=== PATIENT | female | born 1955 | race Hispanic/Latino ===

== ENCOUNTER 2019-08-19 17:37 | Inpatient (IN) | payer MEDICARE ==
[2019-08-19] VITALS (7 sets, daily range): BP systolic 100–147; BP diastolic 45–62
[~2019-08-19] VITALS: Ht 154.9 cm; Wt 62.4 kg
[2019-08-19] MEDS ORDERED: BIVALIRUDIN 250 MG/VIAL IV ONE (19:22)
[2019-08-19] MEDS ORDERED: IOHEXOL-350 50ML VIAL IV ONE (19:23)
[2019-08-19] MEDS ORDERED: LIDOCAINE HCL 2% 20ML ONE ×2 (19:23→20:44)
[2019-08-19] MEDS ORDERED: IOHEXOL 350 MG/ML 100ML INFUS..BTL IV ONE (19:23)
[2019-08-19] MEDS ORDERED: FENTANYL CITRATE PF 50 MCG/1 ML 2ML VIAL ONE (19:23)
[2019-08-19] MEDS ORDERED: NITROGLYCERIN 2 MG/VIAL VIAL IV ONE (19:23)
[2019-08-19] MEDS ORDERED: MIDAZOLAM HCL 1 MG/ML 2ML VIAL ONE (19:23)
[2019-08-19] MEDS ORDERED: GLUCAGON 1MG KIT 1 MG ML IM PRN (21:15)
[2019-08-19] MEDS ORDERED: DEXTROSE 50%-WATER 50 ML DISP.SYRIN IV PRN (21:15)
[2019-08-19] MEDS ORDERED: HYDRALAZINE HCL 20 MG/ML VIAL IV PRN (21:15)
--- NOTE | 2019-08-19 23:12 | NUR ---
2158 Received patient from cath laboratory technician. Drowsy. Oriented x 4. Initial assessment completed. Oriented patient to unit, call light, etc. Transvenous pacer to left femoral. VVI, Vstim-5.0, Vsens -1.0, rate- 60. 6 fr sheath to right femoral to be discontinued. Bilateral pedal pulses strong. On n/c at2 liters. Glucometer done -68. D10W continued at 50 mls/hr. 2300 Glucometer repeated. Results -90. Hospitalist insulation board back tender BEN Worley FMP. Full report given.
[2019-08-19] MEDS ORDERED: ONDANSETRON HCL 4 MG/2 ML VIAL IVP PRN (23:15)
[2019-08-19] MEDS ORDERED: DEXTROSE 5%-WATER 1,000 ML IV SCH (23:15)
[2019-08-19] MEDS: DEXTROSE 10%-WATER 1,000 ML IV SCH (23:45)
[2019-08-20] VITALS (27 sets, daily range): BP systolic 107–180; BP diastolic 42–63
[2019-08-20] MEDS ORDERED: HYDR-3420 PO (04:12)
[2019-08-20] MEDS ORDERED: CYPR4TAB46 PO (04:12)
[2019-08-20] MEDS ORDERED: PANT40TA54 PO (04:12)
[2019-08-20] MEDS ORDERED: ESCI20TA36 PO (04:12)
[2019-08-20] MEDS ORDERED: CARV12.511 PO (04:12)
[2019-08-20] MEDS ORDERED: LEVO50TA11 PO (04:12)
[2019-08-20] MEDS ORDERED: ATOR20TA65 PO (04:12)
[2019-08-20] MEDS ORDERED: APIX2.5T PO (04:12)
[2019-08-20 04:18] LABS: ALANINE AMINOTRANSFERASE 16 U/L (12-78); ALBUMIN 3.3 g/dL (3.5-5.0); ASPARTATE AMINOTRANSFERASE 17 U/L (10-37); CARBON DIOXIDE 19 mmol/L (21-32); CHLORIDE 100 mmol/L (101-111); CREATINE KINASE, TOTAL 20 U/L (21-232); GLOMERULAR FILTR. RATE CALC 4 mL/min (>60); GLUCOSE,RANDOM 106 mg/dL (70-105); MYOGLOBIN 88 ng/mL (10-92); SODIUM SERUM 136 mmol/L (136-145); TOTAL PROTEIN, SERUM 6.8 g/dL (6.0-8.3); TROPONIN I < 0.04 ng/mL (0.00-0.06)
[2019-08-20 04:21] LABS: CREATININE 10.8 mg/dL (0.5-1.5); UREA NITROGEN, BLOOD 111 mg/dL (7-18)
[2019-08-20 04:31] LABS: BASOPHILS % (AUTO) 0.5 % (0.0-5.0); EOSINOPHILS % (AUTO) 1.6 % (0.0-8.0); HEMATOCRIT 27.7 % (36-48); MEAN CORPUSCULAR HEMOGLOBIN 23.3 pg (27.0-33.0); MEAN CORPUSCULAR HGB CONC 30.3 g/dL (32.0-36.0); MEAN CORPUSCULAR VOLUME 76.9 fL (79-99); MONOCYTES % (AUTO) 8.1 % (3.0-13.0); NEUTROPHILS % (AUTO) 75.3 % (40.0-77.0); PLATELET COUNT (AUTO) 77 K/uL (130-400); RED CELL DISTRIBUTION WIDTH 17.9 % (11.0-15.5); WHITE BLOOD COUNT (AUTO) 5.8 K/uL (4.8-10.8)
[2019-08-20 04:50] LABS: INR 1.06 (0.85-1.15); PROTHROMBIN TIME 11.4 SEC (9.6-11.6)
[2019-08-20 04:50] LABS: POTASSIUM 5.6 mmol/L (3.5-5.1)
[2019-08-20] MEDS: INSULIN HUMULIN R 100 UNIT/ML 3ML SQ SCH ×4 (06:33→20:29)
[2019-08-20] MEDS: DEXTROSE 10%-WATER 1,000 ML IV SCH (06:44)
[2019-08-20] MEDS: SEVELAMER HCL 800 MG TABLET PO SCH ×4 (07:33→16:22)
[2019-08-20] MEDS ORDERED: EPOETIN ALFA 10,000 UNIT/ML VIAL SQ SCH (09:00)
[2019-08-20] MEDS: PANTOPRAZOLE SODIUM 40 MG TABLET.DR PO SCH (09:00)
[2019-08-20] MEDS: BUSPIRONE HCL 5 MG TABLET PO SCH ×2 (09:23→20:08)
--- NOTE | 2019-08-20 12:48 | NUR ---
chart reveiwed. acf uploaded to one content Addendum: 08/20/19 at 1249 by JUSTO SKINNER RN CM Amended: Links added.
--- NOTE | 2019-08-20 14:01 | NUR ---
DCP: [facility] met with pt who states she is currently staying with her sister who just became . Pt reports her and 2 kids have all and she has 2 sisters Asha Bower [phone] and Lauren Jaime [phone]. Prior to surgery, pt was independent of all ADLS, uses no DME, but has w/c, no in e care services. PCP is Thai Tirado and she uses [facility] for rx. Plan is to dc to sister Asha's home. CM to follow and assist as needed Addendum: 08/20/19 at 1404 by DANNIE SERVIN SS Amended: Links added. Addendum: 08/20/19 at 1405 by DANNIE SERVIN SS wrong patient.. please see corrected DCP:
--- NOTE | 2019-08-20 14:12 | NUR ---
CORRECT DCP: [facility] met with pt who states she lives in apt with her 2 sons and daughter in law Marielos Arteaga [phone]. Daughter in law is provider 19hrs a week thru [facility]. Pt is on SSD for ESRD- has HD at [facility] on MWF at 3:30pm. [employer] Transport takes her to treatments. Pt has no DME. PCP is Rolando Michele, and she uses [facility] for rx. Plan is home with family at ri. CM to follow and assist as needed Addendum: 08/20/19 at 1416 by DANNIE SANCHEZ Amended: Links added.
--- NOTE | 2019-08-20 15:10 | NUR ---
NEUROLOGY CONSULT DR LEIGH MADE AWARE OF CONSULT FOR PATIENT COMPLAINT OF DOUBLE VISION; STATED HE WILL SEE PATIENT TOMORROW; NO ORDERS GIVEN AT THIS TIME.
[2019-08-20] MEDS ORDERED: ALBUMIN (HUMAN) 5% 250 ML IV ONE (15:30)
[2019-08-20] MEDS ORDERED: ALBUMIN (HUMAN) 25% 100 ML IV ONE (15:32)
[2019-08-20] MEDS ORDERED: ALBUMIN (HUMAN) 25% 100 ML IV PRN (15:45)
[2019-08-20] MEDS: MORPHINE SULFATE 2 MG/ML 1ML SYG IVP PRN (17:54)
[2019-08-20] MEDS ORDERED: ACETAMINOPHEN 325 MG TAB ONE (20:06)
[2019-08-20] MEDS: ATORVASTATIN CALCIUM 20 MG TABLET PO SCH (20:08)
--- NOTE | 2019-08-20 20:30 | NUR ---
C/o headache. States cold pack, warm packs, and morphine given did not alleviate headache. Asked what she takes at home- Tylenol. Call placed to Dr Montalvo. Spoke with BEN DONNELLY. Reported pt request for Tylenol. Afebrile, glucometer 97. States has not had double vision, more very blurry vision. Dr Fletcher to see pt tomorrow. Comfort measures done. Pt medicated for pain with Tylenol. Call light and needed items readily at hand. Encouraged to call prn.
[2019-08-20] MEDS: ACETAMINOPHEN 325 MG TAB PO PRN (23:41)
[2019-08-21] VITALS (27 sets, daily range): BP systolic 141–184; BP diastolic 49–70
[2019-08-21] MEDS: DEXTROSE 10%-WATER 1,000 ML IV SCH ×2 (02:01→22:48)
[2019-08-21 03:49] LABS: BASOPHILS % (AUTO) 0.7 % (0.0-5.0); EOSINOPHILS % (AUTO) 3.2 % (0.0-8.0); HEMATOCRIT 24.8 % (36-48); LYMPHOCYTES % (AUTO) 19.8 % (21.0-51.0); MEAN CORPUSCULAR HEMOGLOBIN 23.2 pg (27.0-33.0); MEAN CORPUSCULAR HGB CONC 30.6 g/dL (32.0-36.0); MEAN CORPUSCULAR VOLUME 75.8 fL (79-99); MONOCYTES % (AUTO) 9.6 % (3.0-13.0); NEUTROPHILS % (AUTO) 66.5 % (40.0-77.0); PLATELET COUNT (AUTO) 64 K/uL (130-400); RED BLOOD CELL COUNT(AUTO) 3.27 MIL/uL (4.00-5.50); RED CELL DISTRIBUTION WIDTH 17.4 % (11.0-15.5); WHITE BLOOD COUNT (AUTO) 4.4 K/uL (4.8-10.8)
[2019-08-21 03:59] LABS: % IRON SATURATION 95.9 % (22-44)
[2019-08-21 04:13] LABS: CREATININE 6.5 mg/dL (0.5-1.5); PHOSPHORUS 5.4 mg/dL (2.5-4.9); POTASSIUM 3.9 mmol/L (3.5-5.1); THYROID STIMULATING HORMONE 3.22 uIU/mL (0.36-3.74)
[2019-08-21] MEDS: INSULIN HUMULIN R 100 UNIT/ML 3ML SQ SCH ×4 (06:03→21:00)
[2019-08-21] MEDS: PANTOPRAZOLE SODIUM 40 MG TABLET.DR PO SCH (08:46)
[2019-08-21] MEDS: SEVELAMER HCL 800 MG TABLET PO SCH ×3 (08:46→16:42)
[2019-08-21] MEDS: BUSPIRONE HCL 5 MG TABLET PO SCH ×2 (09:05→21:00)
[2019-08-21] MEDS: METOCLOPRAMIDE 10 MG/2 ML VIAL IVP SCH ×2 (11:11→16:42)
[2019-08-21] MEDS: ACETAMINOPHEN 325 MG TAB PO PRN ×2 (11:12→20:22)
[2019-08-21] MEDS ORDERED: ENALAPRILAT DIHYDRATE 1.25MG/ML 1ML VIAL IV PRN (17:45)
--- NOTE | 2019-08-21 20:00 | NUR ---
NURSING ROUNDS Pt alert and awake, oriented x 3, resting in the bed keeping her left leg straight. Pt with the 5fr sheath on the left groin area where they inserted the temporary transvenous pacemaker at the prescribed settings. Pt running bet high 50's sinus bradycardia to low 60's nsr, pacer rate set at 48. Right groin tender to touch, no hematoma, pulses in the ble palpable. Pt with esrd on hd mwf, anuric. 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 No complaints of blurry vision and dizzy spells now that the eyepatch was applied to the left eye. No chest pain, no shortness of breath, able to move by self in the bed. Continues with the ivf of D10W infused at 50 cc's per hour as order, pt reported to have a poor apetite and tend to run low blood sugars in between. Normotensive, will continue to monitor.
[2019-08-21] MEDS: ATORVASTATIN CALCIUM 20 MG TABLET PO SCH (20:22)
[2019-08-22] VITALS (23 sets, daily range): BP systolic 90–178; BP diastolic 31–72
[2019-08-22] MEDS: INSULIN HUMULIN R 100 UNIT/ML 3ML SQ SCH ×4 (06:58→21:00)
[2019-08-22] MEDS: BUSPIRONE HCL 5 MG TABLET PO SCH ×2 (07:58→21:24)
[2019-08-22] MEDS: SEVELAMER HCL 800 MG TABLET PO SCH ×3 (07:58→16:42)
[2019-08-22] MEDS: HYDROCHLOROTHIAZIDE 25 MG TABLET PO SCH (07:58)
[2019-08-22] MEDS: METOCLOPRAMIDE 10 MG/2 ML VIAL IVP SCH ×3 (07:58→16:42)
[2019-08-22] MEDS: PANTOPRAZOLE SODIUM 40 MG TABLET.DR PO SCH (07:58)
[2019-08-22 08:46] LABS: BASOPHILS % (AUTO) 0.5 % (0.0-5.0); EOSINOPHILS % (AUTO) 3.4 % (0.0-8.0); HEMATOCRIT 23.7 % (36-48); LYMPHOCYTES % (AUTO) 10.2 % (21.0-51.0); MEAN CORPUSCULAR HEMOGLOBIN 23.8 pg (27.0-33.0); MEAN CORPUSCULAR HGB CONC 32.1 g/dL (32.0-36.0); MEAN CORPUSCULAR VOLUME 74.3 fL (79-99); MONOCYTES % (AUTO) 7.8 % (3.0-13.0); NEUTROPHILS % (AUTO) 77.6 % (40.0-77.0); PLATELET COUNT (AUTO) 61 K/uL (130-400); RED BLOOD CELL COUNT(AUTO) 3.19 MIL/uL (4.00-5.50); RED CELL DISTRIBUTION WIDTH 16.6 % (11.0-15.5); WHITE BLOOD COUNT (AUTO) 4.1 K/uL (4.8-10.8)
[2019-08-22 08:56] LABS: CREATININE 4.5 mg/dL (0.5-1.5); POTASSIUM 3.7 mmol/L (3.5-5.1)
[2019-08-22 09:04] LABS: ALBUMIN 3.2 g/dL (3.5-5.0); BILIRUBIN,TOTAL 1.5 mg/dL (0.2-1.0); MAGNESIUM 1.7 mg/dL (1.80-2.40); PHOSPHORUS 3.3 mg/dL (2.5-4.9); TOTAL PROTEIN, SERUM 6.6 g/dL (6.0-8.3)
[2019-08-22] MEDS: LISINOPRIL 5 MG TABLET PO SCH ×2 (09:41→22:04)
[2019-08-22] MEDS ORDERED: LACTULOSE 20 GM/30 ML UDCUP PO SCH (11:15)
[2019-08-22] MEDS: ACETAMINOPHEN 325 MG TAB PO PRN ×3 (11:31→21:37)
[2019-08-22] MEDS: MORPHINE SULFATE 2 MG/ML 1ML SYG IVP PRN ×2 (12:08→18:50)
[2019-08-22] MEDS ORDERED: IRON SUCROSE COMPLEX 200 MG in SODIUM CHLORIDE 0.9% 50 ML IV SCH (14:00)
[2019-08-22] MEDS ORDERED: COMPOUND IV MISC 1 EACH IVSOLN MISC PRN (14:00)
--- NOTE | 2019-08-22 14:40 | NUR ---
Dr. Fletcher called 1440Spoke with Dr. Fletcher made him aware of carotid artery results. He recommended letting the cardiology team and cardiothoracic team aware to see if the plan of care changes regarding heart surgery vs carotids first. 1443 Spoke with Hernan JACK for Dr. Car from cardiology he was made aware of carotid artery study and told me he would call Dr. Howard to make him aware.
[2019-08-22] MEDS: ZOSYN 3.375GM+NS 50ML 50 ML IV SCH (17:47)
--- NOTE | 2019-08-22 18:22 | NUR ---
Dr. Garber Called Called Dr. Garber made him aware of new consult. No new orders received.
[2019-08-22] MEDS: METOPROLOL TARTRATE 25 MG TAB PO SCH ×2 (19:25→21:00)
[2019-08-22] MEDS ORDERED: METOPROLOL TARTRATE 1 MG/ML 5ML VIAL IV PRN (19:30)
[2019-08-22] MEDS ORDERED: ENOXAPARIN SODIUM 60 MG/0.6 ML SQ SCH (19:45)
--- NOTE | 2019-08-22 19:59 | NUR ---
Gave report to Hayley RON all questions answered patient left lying in semifowler position call light in reach 3 side rails up. HR 61 after giving 5mg Lopressor. Hayley made aware of lovenox 1mg/kg dose that needs to be administered as per Hernan JACK from cardiology.
--- NOTE | 2019-08-22 20:00 | NUR ---
ASSESSMENT PT RESTING QUIETLY IN BED. AAOX4. PT C/O CONSTANT BACK PAIN, SEE E.MAR. 4X4'S FOLDED AND TAPED OVER LEFT EYE INTACT. SEAN REVIEWED AND AND WITHIN REACH. ASSESSMENT COMPLETED, SEE FLOW SHEET.
--- NOTE | 2019-08-22 20:01 | NUR ---
Hernan JACK Spoke with Hernan JACK from cardiology recieved orders for metoprolol and lovenox 1mg/kg
[2019-08-22] MEDS: ATORVASTATIN CALCIUM 20 MG TABLET PO SCH (21:24)
[2019-08-22] MEDS ORDERED: DEXTROSE 10%-WATER 1,000 ML IV SCH (21:30)
[2019-08-23] VITALS (24 sets, daily range): BP systolic 88–160; BP diastolic 37–62
[2019-08-23 03:43] LABS: HEMATOCRIT 23.4 % (36-48); MEAN CORPUSCULAR HEMOGLOBIN 23.6 pg (27.0-33.0); MEAN CORPUSCULAR HGB CONC 29.9 g/dL (32.0-36.0); MEAN CORPUSCULAR VOLUME 79.1 fL (79-99); RED BLOOD CELL COUNT(AUTO) 2.96 MIL/uL (4.00-5.50); RED CELL DISTRIBUTION WIDTH 17.6 % (11.0-15.5); WHITE BLOOD COUNT (AUTO) 7.3 K/uL (4.8-10.8)
[2019-08-23 04:04] LABS: INR 1.24 (0.85-1.15); PROTHROMBIN TIME 13.3 SEC (9.6-11.6)
[2019-08-23] MEDS: ZOSYN 3.375GM+NS 50ML 50 ML IV SCH ×2 (04:04→16:44)
[2019-08-23] MEDS: INSULIN HUMULIN R 100 UNIT/ML 3ML SQ SCH ×4 (06:26→20:20)
[2019-08-23] MEDS ORDERED: DEXTROSE 10%-WATER 1,000 ML IV SCH (07:00)
[2019-08-23 08:11] LABS: HEPATITIS A ANTIBODY IGM Negative (Negative); HEPATITIS B CORE IGM Negative (Negative); HEPATITIS Bs ANTIGEN SCREEN P Negative (Negative)
[2019-08-23] MEDS: BUSPIRONE HCL 5 MG TABLET PO SCH ×2 (08:42→21:58)
[2019-08-23] MEDS: PANTOPRAZOLE SODIUM 40 MG TABLET.DR PO SCH (08:43)
[2019-08-23] MEDS: LISINOPRIL 5 MG TABLET PO SCH (08:43)
[2019-08-23] MEDS: SEVELAMER HCL 800 MG TABLET PO SCH ×3 (08:43→16:44)
[2019-08-23] MEDS: HYDROCHLOROTHIAZIDE 25 MG TABLET PO SCH (08:44)
[2019-08-23] MEDS: IRON SUCROSE COMPLEX 200 MG in SODIUM CHLORIDE 0.9% 50 ML IV SCH (08:44)
[2019-08-23] MEDS: METOCLOPRAMIDE 10 MG/2 ML VIAL IVP SCH ×3 (08:44→16:42)
--- NOTE | 2019-08-23 09:05 | NUR ---
DR. Sara SNIDER IN TO SEE PT. PLAN OF CARE DISCUSSED. NEW ORDERS RECEIVED AND NOTED. HD NURSE NOTIFIED OF ORDER TO DIALYZE PT TODAY.
--- NOTE | 2019-08-23 10:10 | NUR ---
DR. LEIGH AT BEDSIDE. PLAN OF CARE DISCUSSED. MD EXPLAINED PT IS HIGH RISK FOR SURGERY, PT VERBALIZES UNDERSTANDING. ALL QUESTIONS ANSWERED,
[2019-08-23] MEDS: ACETAMINOPHEN 325 MG TAB PO PRN ×3 (10:15→19:46)
--- NOTE | 2019-08-23 11:25 | NUR ---
Maura NELSON FINE PATCHER AT BEDSIDE TO SEE PT. PLAN OF CARE DISCUSSED. WILL ADJUST MEDICATION REGIMEN.
[2019-08-23] MEDS ORDERED: CEFAZOLIN SODIUM 1 GM VIAL IVP PRN (12:00)
--- NOTE | 2019-08-23 13:40 | NUR ---
CHART REVIEWED, SURGERY PENDING DISPO UNCERTAIN, DISCUSSED WITH ELLA [facility]TIENNE [facility] YESTERDAY PATIENT OPTION TO GO TO [facility] Addendum: 08/23/19 at 1341 by JUSTO SKINNER RN CM Amended: Links added.
--- NOTE | 2019-08-23 15:30 | NUR ---
PT RECEIVING HD, TOLERATING WELL, TRANSFUSING PRBC ORDERED. NO ADVERSE REACTION. CONTINUE TO MONITOR PT.
[2019-08-23] MEDS ORDERED: PHARMACY COMMUNICATION MISC SCH ×2 (16:15→16:30)
[2019-08-23] MEDS: DAPTOMYCIN 500 MG in SODIUM CHLORIDE 0.9% 50 ML IV SCH (18:26)
--- NOTE | 2019-08-23 20:26 | NUR ---
DR NICKOLAS OLMOS INTO SEE PT. MADE AWARE OF TEMP OF 100.3 AND CURRENT ANTIBIOTICS, NO NEW ORDERS AT PRESENT.
[2019-08-23] MEDS: ATORVASTATIN CALCIUM 20 MG TABLET PO SCH (21:57)
[2019-08-23] MEDS: METOPROLOL TARTRATE 25 MG TAB PO SCH (21:58)
[2019-08-24] VITALS (33 sets, daily range): BP systolic 82–183; BP diastolic 48–84
[2019-08-24] MEDS: ZOSYN 3.375GM+NS 50ML 50 ML IV SCH ×2 (04:08→16:14)
[2019-08-24 04:13] LABS: BASOPHILS % (AUTO) 0.2 % (0.0-5.0); EOSINOPHILS % (AUTO) 1.1 % (0.0-8.0); HEMATOCRIT 28.6 % (36-48); LYMPHOCYTES % (AUTO) 6.9 % (21.0-51.0); MEAN CORPUSCULAR HEMOGLOBIN 25.2 pg (27.0-33.0); MEAN CORPUSCULAR HGB CONC 32.5 g/dL (32.0-36.0); MEAN CORPUSCULAR VOLUME 77.5 fL (79-99); MONOCYTES % (AUTO) 12.9 % (3.0-13.0); NEUTROPHILS % (AUTO) 78.5 % (40.0-77.0); PLATELET COUNT (AUTO) 51 K/uL (130-400); RED BLOOD CELL COUNT(AUTO) 3.69 MIL/uL (4.00-5.50); RED CELL DISTRIBUTION WIDTH 16.4 % (11.0-15.5); WHITE BLOOD COUNT (AUTO) 5.7 K/uL (4.8-10.8)
[2019-08-24 04:21] LABS: INR 1.21 (0.85-1.15); PARTIAL THROMBOPLASTIN TIME 44.7 SEC (26.3-35.5)
[2019-08-24 04:23] LABS: ALBUMIN 2.7 g/dL (3.5-5.0); BILIRUBIN,TOTAL 4.6 mg/dL (0.2-1.0); CREATININE 4.2 mg/dL (0.5-1.5); POTASSIUM 4.2 mmol/L (3.5-5.1); TOTAL PROTEIN, SERUM 6.3 g/dL (6.0-8.3)
--- NOTE | 2019-08-24 06:44 | NUR ---
PLT TRANSFUSION 0610: PLT [id number]: 215ML TRANSFUSED PER ORDERS. SEE TRANSFUSION RECORD. 0635: PLT [id number]: 221ML TRANSFUSED PER ORDERS. SEE TRANSFUSION RECORD.
[2019-08-24] MEDS: INSULIN HUMULIN R 100 UNIT/ML 3ML SQ SCH ×2 (06:45→11:30)
[2019-08-24] MEDS: METOCLOPRAMIDE 10 MG/2 ML VIAL IVP SCH ×3 (06:45→16:14)
[2019-08-24] MEDS: SEVELAMER HCL 800 MG TABLET PO SCH ×3 (08:00→16:14)
[2019-08-24] MEDS ORDERED: AMINOCAPROIC ACID 15,000 MG in SODIUM CHLORIDE 0.9% 500ML 420 ML IV PRN (08:15)
[2019-08-24] MEDS ORDERED: EPINEPHRINE 10 MG in SODIUM CHLORIDE 0.9% 240 ML IV PRN (08:15)
[2019-08-24] MEDS ORDERED: NOREPINEPHRINE BITARTRATE 8 MG in DEXTROSE 5%-WATER 250 ML IV PRN (08:15)
[2019-08-24] MEDS: BUSPIRONE HCL 5 MG TABLET PO SCH ×2 (09:00→20:45)
[2019-08-24] MEDS: PANTOPRAZOLE SODIUM 40 MG TABLET.DR PO SCH (09:00)
--- NOTE | 2019-08-24 09:00 | NUR ---
PT USED HER PHONE TO CALL WHO SHE WISHED TO KNOW, THAT SHE WAS GOING INTO SURGERY
[2019-08-24] MEDS ORDERED: ESMOLOL HCL 10 MG/ML 10 ML VIAL ONE (09:01)
[2019-08-24] MEDS ORDERED: PROTAMINE SULFATE 10 MG/ML 25ML VIAL IV ONE (09:02)
[2019-08-24] MEDS ORDERED: FENTANYL CITRATE PF 50 MCG/1 ML 20ML VIAL IJ ONE (09:02)
[2019-08-24] MEDS ORDERED: NOREPINEPHRINE BITARTRATE 1 MG/1 ML ML IV ONE (09:02)
[2019-08-24] MEDS ORDERED: EPINEPHRINE 1 MG/ML AMPULE ONE (09:02)
[2019-08-24] MEDS ORDERED: AMINOCAPROIC ACID 250 MG/ML 20 ML VIAL IV ONE (09:02)
[2019-08-24] MEDS ORDERED: HEPARIN SODIUM 1000UNIT/ML 10ML VIAL ONE ×2 (09:02→10:17)
[2019-08-24] MEDS ORDERED: MIDAZOLAM HCL 1 MG/ML 2ML VIAL ONE (09:02)
[2019-08-24] MEDS ORDERED: ROCURONIUM 10MG/1ML SYR 10 MG/ML ML ONE (09:02)
[2019-08-24] MEDS ORDERED: PROPOFOL 10 MG/ML 20ML VIAL IV ONE (09:02)
[2019-08-24] MEDS ORDERED: LIDOCAINE PF 2% 5ML ABBOJECT ONE (09:02)
[2019-08-24] MEDS ORDERED: SODIUM BICARB 50MEQ 50ML VIAL ONE ×2 (09:02→09:09)
[2019-08-24] MEDS ORDERED: KETAMINE 50MG/ML SYRINGE 50 MG/ML DISP.SYRIN IV ONE (09:04)
[2019-08-24] MEDS: IRON SUCROSE COMPLEX 200 MG in SODIUM CHLORIDE 0.9% 50 ML IV SCH (09:05)
[2019-08-24] MEDS: METOPROLOL TARTRATE 25 MG TAB PO SCH (09:05)
[2019-08-24] MEDS ORDERED: NITROGLYCERIN 50 MG/D5% WATER 1 BOT ONE (09:09)
--- NOTE | 2019-08-24 09:25 | NUR ---
TAKEN TO CV SURGERY BELONGINGS WITH SECURITY AT THIS TIME, VS STABLE, VENOFER AND LOPRESSOR GIVEN SBAR REPORT TO RN AND ANESTHESIA MD. PT IS ALERT AWAKE, ORIENTED. RIGHT UPPER ARM FISTULA. WITH GOOD BRUIT AND THRILL.
[2019-08-24] MEDS ORDERED: PAPAVERINE HCL 30 MG/ML 2ML VIAL ONE (09:43)
[2019-08-24] MEDS ORDERED: CEFAZOLIN SODIUM 1 GM VIAL ONE (09:43)
[2019-08-24] MEDS ORDERED: CEFUROXIME SODIUM 1.5 GM VIAL ONE (09:51)
[2019-08-24 10:01] LABS: ABG BASE EXCESS 1.5 mmol/L (-2.0-3.0); ABG HCO3 23.8 mmol/L (21.0-28.0); ABG OXYGEN SATURATION 98.8 % (95.0-99.0); ABG PCO2 29 mmHg (32-45)
[2019-08-24] MEDS ORDERED: AMIODARONE HCL 50 MG/ML 3 ML VIAL ONE (11:40)
[2019-08-24 12:39] LABS: ABG BASE EXCESS -3.4 mmol/L (-2.0-3.0); ABG HCO3 19.9 mmol/L (21.0-28.0); ABG OXYGEN SATURATION 98.9 % (95.0-99.0); ABG PCO2 29 mmHg (32-45)
[2019-08-24] MEDS ORDERED: SODIUM CHLORIDE 0.9% 500ML 500 ML IV SCH (13:07)
[2019-08-24] MEDS ORDERED: NITROGLYCERIN 50 MG/D5% WATER 250 BOT IV SCH (13:15)
[2019-08-24] MEDS ORDERED: NOREPINEPHRINE 4MG/NS 250ML 250 ML IV PRN (13:15)
[2019-08-24] MEDS ORDERED: PROPOFOL 1000 MG/100 ML 100 ML IV PRN (13:15)
[2019-08-24] MEDS ORDERED: AMINOCAPROIC ACID 15,000 MG in SODIUM CHLORIDE 0.9% 250 ML IV SCH (13:15)
[2019-08-24] MEDS ORDERED: POTASSIUM CHLORIDE 20MEQ/100ML 100 ML IV PRN (13:15)
[2019-08-24] MEDS ORDERED: POTASSIUM PHOS 15 mMOL+NS250ML 250 ML IV PRN (13:15)
[2019-08-24] MEDS ORDERED: DEXTROSE 50%-WATER 50 ML DISP.SYRIN IV PRN (13:15)
[2019-08-24] MEDS ORDERED: ALBUMIN (HUMAN) 5% 250 ML IV PRN (13:15)
[2019-08-24] MEDS ORDERED: INSULIN REGULAR, HUMAN 3ML 100 UNIT in SODIUM CHLORIDE 0.9% 99 ML IV SCH ×2 (13:15)
[2019-08-24] MEDS ORDERED: SODIUM CHLORIDE 0.9% 1000ML 1,000 ML IV SCH (13:15)
[2019-08-24] MEDS ORDERED: SODIUM CHLORIDE 0.9% 250 ML IV PRN (13:15)
[2019-08-24] MEDS ORDERED: GLUCAGON 1MG KIT 1 MG ML IM PRN (13:15)
[2019-08-24] MEDS ORDERED: TRAMADOL HCL 50 MG TABLET PO PRN (13:15)
[2019-08-24] MEDS ORDERED: MORPHINE SULFATE 2 MG/ML 1ML SYG IV PRN (13:15)
[2019-08-24] MEDS ORDERED: MAGNESIUM 2GM PREMIX 50ML 50 ML IV PRN (13:15)
[2019-08-24] MEDS ORDERED: ACETAMINOPHEN 650 MG SUPPOSITORY RC PRN (13:15)
[2019-08-24] MEDS ORDERED: MORPHINE SULFATE 4 MG/1ML SYG IV PRN (13:15)
[2019-08-24] MEDS ORDERED: ONDANSETRON HCL 4 MG/2 ML VIAL IV PRN (13:15)
[2019-08-24] MEDS ORDERED: SODIUM CHLORIDE 0.9% 10 ML VIAL IVP PRN (13:15)
[2019-08-24] MEDS ORDERED: EPINEPHRINE 10 MG in DEXTROSE 5%-WATER 250 ML IV PRN (13:15)
[2019-08-24 13:26] LABS: ABG BASE EXCESS -0.8 mmol/L (-2.0-3.0); ABG HCO3 22.6 mmol/L (21.0-28.0); ABG OXYGEN SATURATION 98.6 % (95.0-99.0); ABG PCO2 33 mmHg (32-45)
[2019-08-24 13:29] LABS: HEMATOCRIT 25.7 % (36-48); MEAN CORPUSCULAR HEMOGLOBIN 25.2 pg (27.0-33.0); MEAN CORPUSCULAR HGB CONC 32.7 g/dL (32.0-36.0); MEAN CORPUSCULAR VOLUME 77.2 fL (79-99); RED BLOOD CELL COUNT(AUTO) 3.33 MIL/uL (4.00-5.50); RED CELL DISTRIBUTION WIDTH 16.5 % (11.0-15.5); WHITE BLOOD COUNT (AUTO) 12.5 K/uL (4.8-10.8)
[2019-08-24 13:43] LABS: INR 1.25 (0.85-1.15); PARTIAL THROMBOPLASTIN TIME 38.8 SEC (26.3-35.5); PROTHROMBIN TIME 13.4 SEC (9.6-11.6)
[2019-08-24 13:44] LABS: CREATININE 4.6 mg/dL (0.5-1.5); MAGNESIUM 1.5 mg/dL (1.80-2.40); PHOSPHORUS 4.2 mg/dL (2.5-4.9); POTASSIUM 3.5 mmol/L (3.5-5.1)
[2019-08-24] MEDS ORDERED: AMIODARONE HCL 150 MG in DEXTROSE 5%-WATER 100 ML IV SCH (14:15)
[2019-08-24] MEDS ORDERED: AMIODARONE HCL 360 MG in DEXTROSE 5%-WATER 200 ML IV SCH (14:15)
[2019-08-24] MEDS: CALCIUM GLUCONATE 1 GM in SODIUM CHLORIDE 0.9% 50 ML IV PRN ×4 (14:23→21:10)
[2019-08-24 15:08] LABS: ABG BASE EXCESS -0.7 mmol/L (-2.0-3.0); ABG HCO3 22.1 mmol/L (21.0-28.0); ABG PCO2 30 mmHg (32-45)
[2019-08-24] MEDS: CEFAZOLIN SODIUM 1 GM VIAL IV SCH (17:06)
--- NOTE | 2019-08-24 17:15 | NUR ---
PATIENT STARTED ON VENTILATOR WEANING TRIALS. SIMV DROPPED TO RATE OF 6.
--- NOTE | 2019-08-24 17:45 | NUR ---
PATIENT STARTED ON CPAP TRIALS 01/26. TOLERATING WELL.
[2019-08-24 18:27] LABS: ABG BASE EXCESS -2.4 mmol/L (-2.0-3.0); ABG HCO3 22.7 mmol/L (21.0-28.0); ABG OXYGEN SATURATION 97.9 % (95.0-99.0); ABG PCO2 40 mmHg (32-45)
--- NOTE | 2019-08-24 18:45 | NUR ---
SUCCESSFUL VENTILATOR WEANING TRIALS. PATIENT EXTUBATED PER MD ORDERS. TOLERATING WELL.
[2019-08-24] MEDS ORDERED: AMIODARONE HCL 450 MG in DEXTROSE 5%-WATER 250 ML IV SCH (20:15)
[2019-08-24] MEDS: ATORVASTATIN CALCIUM 20 MG TABLET PO SCH (20:45)
[2019-08-24 20:52] LABS: ABG BASE EXCESS -0.6 mmol/L (-2.0-3.0); ABG HCO3 25.3 mmol/L (21.0-28.0); ABG OXYGEN SATURATION 98.1 % (95.0-99.0); ABG PCO2 48 mmHg (32-45)
[2019-08-24] MEDS ORDERED: CALCIUM GLUCONATE 1 GM/10 ML VIAL IV ONE (21:09)
[2019-08-24] MEDS: SODIUM BICARB 50MEQ 50ML VIAL IV PRN (21:10)
[2019-08-24] MEDS: TRAMADOL HCL 50 MG TABLET PO PRN (21:24)
[2019-08-25] VITALS (24 sets, daily range): BP systolic 104–158; BP diastolic 46–86
[2019-08-25] MEDS: CEFAZOLIN SODIUM 1 GM VIAL IV SCH ×2 (01:40→08:49)
[2019-08-25 04:28] LABS: BASOPHILS % (AUTO) 0.3 % (0.0-5.0); LYMPHOCYTES % (AUTO) 6.5 % (21.0-51.0); MEAN CORPUSCULAR HEMOGLOBIN 24.2 pg (27.0-33.0); MEAN CORPUSCULAR HGB CONC 31.2 g/dL (32.0-36.0); MEAN CORPUSCULAR VOLUME 77.6 fL (79-99); MONOCYTES % (AUTO) 9.8 % (3.0-13.0); NEUTROPHILS % (AUTO) 82.5 % (40.0-77.0); PLATELET COUNT (AUTO) 77 K/uL (130-400); RED BLOOD CELL COUNT(AUTO) 3.35 MIL/uL (4.00-5.50); RED CELL DISTRIBUTION WIDTH 16.9 % (11.0-15.5); WHITE BLOOD COUNT (AUTO) 12.4 K/uL (4.8-10.8)
[2019-08-25 04:39] LABS: INR 1.18 (0.85-1.15); PARTIAL THROMBOPLASTIN TIME 37.2 SEC (26.3-35.5); PROTHROMBIN TIME 12.7 SEC (9.6-11.6)
[2019-08-25 04:40] LABS: ALBUMIN 2.4 g/dL (3.5-5.0); BILIRUBIN,TOTAL 1.1 mg/dL (0.2-1.0); CREATININE 5.8 mg/dL (0.5-1.5); MAGNESIUM 2.5 mg/dL (1.80-2.40); PHOSPHORUS 6.8 mg/dL (2.5-4.9); POTASSIUM 4.5 mmol/L (3.5-5.1); TOTAL PROTEIN, SERUM 6.1 g/dL (6.0-8.3)
--- NOTE | 2019-08-25 05:10 | NUR ---
Left femoral sheath pulled at 0430 and pressure held for 30 min with no complications.
[2019-08-25] MEDS: ZOSYN 3.375GM+NS 50ML 50 ML IV SCH ×2 (05:12→17:08)
[2019-08-25] MEDS: CALCIUM GLUCONATE 1 GM in SODIUM CHLORIDE 0.9% 50 ML IV PRN (05:12)
[2019-08-25] MEDS ORDERED: CALCIUM GLUCONATE 1 GM/10 ML VIAL IV ONE (05:12)
[2019-08-25] MEDS ORDERED: SODIUM CHLORIDE 0.9% 50 ML IV ONE (05:15)
--- NOTE | 2019-08-25 05:45 | NUR ---
Patient moved to room DP15 at 0545. No Acute events overnight.
[2019-08-25] MEDS: METOCLOPRAMIDE 10 MG/2 ML VIAL IVP SCH ×3 (07:30→16:58)
[2019-08-25] MEDS: BUSPIRONE HCL 5 MG TABLET PO SCH ×2 (08:49→20:31)
[2019-08-25] MEDS: TRAMADOL HCL 50 MG TABLET PO PRN ×2 (08:49→20:34)
[2019-08-25] MEDS: SEVELAMER HCL 800 MG TABLET PO SCH ×3 (08:49→17:08)
[2019-08-25] MEDS: FAMOTIDINE/PF 20 MG/2 ML VIAL IV SCH (08:49)
[2019-08-25] MEDS ORDERED: ASPIRIN 325MG EC TAB 325 MG TABLET.DR PO SCH (09:00)
[2019-08-25] MEDS: IRON SUCROSE COMPLEX 200 MG in SODIUM CHLORIDE 0.9% 50 ML IV SCH (09:49)
--- NOTE | 2019-08-25 11:40 | NUR ---
As per RN, they just removed sheath from groin area and its fairly fresh and they want to prevent bleeding. PT Eval and treat to start Monday. Addendum: 08/25/19 at 1142 by SAYRA NAGY, PT PT Amended: Links added.
[2019-08-25] MEDS: AMIODARONE HCL 200 MG TABLET PO SCH (15:32)
[2019-08-25] MEDS: DAPTOMYCIN 500 MG in SODIUM CHLORIDE 0.9% 50 ML IV SCH (18:01)
[2019-08-25] MEDS: ATORVASTATIN CALCIUM 20 MG TABLET PO SCH (20:31)
[2019-08-25] MEDS: ACETAMINOPHEN 325 MG TAB PO PRN (21:59)
[2019-08-26] VITALS (22 sets, daily range): BP systolic 89–190; BP diastolic 43–79
[2019-08-26 03:20] LABS: BASOPHILS % (AUTO) 0.8 % (0.0-5.0); EOSINOPHILS % (AUTO) 1.1 % (0.0-8.0); HEMATOCRIT 27.9 % (36-48); LYMPHOCYTES % (AUTO) 7.5 % (21.0-51.0); MEAN CORPUSCULAR HEMOGLOBIN 24.8 pg (27.0-33.0); MEAN CORPUSCULAR HGB CONC 31.2 g/dL (32.0-36.0); MEAN CORPUSCULAR VOLUME 79.5 fL (79-99); MONOCYTES % (AUTO) 9.2 % (3.0-13.0); NEUTROPHILS % (AUTO) 80.3 % (40.0-77.0); PLATELET COUNT (AUTO) 118 K/uL (130-400); RED BLOOD CELL COUNT(AUTO) 3.51 MIL/uL (4.00-5.50); RED CELL DISTRIBUTION WIDTH 17.9 % (11.0-15.5); WHITE BLOOD COUNT (AUTO) 11.8 K/uL (4.8-10.8)
[2019-08-26] MEDS: TRAMADOL HCL 50 MG TABLET PO PRN (03:28)
[2019-08-26 03:37] LABS: ALBUMIN 2.5 g/dL (3.5-5.0); ASPARTATE AMINOTRANSFERASE 26 U/L (10-37); BILIRUBIN,TOTAL 0.6 mg/dL (0.2-1.0); CARBON DIOXIDE 23 mmol/L (21-32); CHLORIDE 93 mmol/L (101-111); CREATININE 6.7 mg/dL (0.5-1.5); GLOMERULAR FILTR. RATE CALC 7 mL/min (>60); GLUCOSE,RANDOM 112 mg/dL (70-105); POTASSIUM 4.8 mmol/L (3.5-5.1); SODIUM SERUM 134 mmol/L (136-145); TOTAL PROTEIN, SERUM 6.7 g/dL (6.0-8.3); UREA NITROGEN, BLOOD 62 mg/dL (7-18)
[2019-08-26 03:44] LABS: ALANINE AMINOTRANSFERASE < 6 U/L (12-78)
[2019-08-26] MEDS: ZOSYN 3.375GM+NS 50ML 50 ML IV SCH ×2 (04:04→17:48)
[2019-08-26] MEDS: ACETAMINOPHEN 325 MG TAB PO PRN ×2 (04:19→20:46)
[2019-08-26] MEDS: INSULIN HUMULIN R 100 UNIT/ML 3ML SQ SCH ×4 (07:30→20:20)
[2019-08-26] MEDS: METOCLOPRAMIDE 10 MG/2 ML VIAL IVP SCH ×3 (07:30→17:00)
[2019-08-26] MEDS: IRON SUCROSE COMPLEX 200 MG in SODIUM CHLORIDE 0.9% 50 ML IV SCH (08:30)
[2019-08-26 09:04] LABS: HEMOGLOBIN A1C 4.1 % (4.0-6.0)
--- NOTE | 2019-08-26 09:20 | NUR ---
Patient requested for dialysis to be stopped. She states she does not fee well. Heart rated noted in the 120s. Dr Jamila nicole.
[2019-08-26] MEDS: AMIODARONE HCL 200 MG TABLET PO SCH (09:57)
[2019-08-26] MEDS: FAMOTIDINE/PF 20 MG/2 ML VIAL IV SCH (09:57)
[2019-08-26] MEDS: SEVELAMER HCL 800 MG TABLET PO SCH ×3 (09:58→17:48)
[2019-08-26] MEDS: BUSPIRONE HCL 5 MG TABLET PO SCH ×2 (09:58→20:46)
--- NOTE | 2019-08-26 10:15 | NUR ---
patient is on DIALYSIS.No PT evaluation perform. Addendum: 08/26/19 at 1329 by WIL ANTHONY, PT PT Amended: Links added.
--- NOTE | 2019-08-26 12:55 | NUR ---
At approximately 0900 hrs patient went heart rate went from mid 60s to 120s - 130s during dialysis and presented with new onset confusion. Patient requested dialysis to be stopped because she felt ill. Dr Marino, Dr Cristina, and Dr Fletcher have been notified, and are all aware of changes to patient condition. Currently, patient remains somewhat confused but HR now is at 79. Will continue to monitor.
[2019-08-26] MEDS ORDERED: MIDODRINE HCL 5 MG TABLET PO SCH ×2 (15:30→21:00)
[2019-08-26] MEDS: ATORVASTATIN CALCIUM 20 MG TABLET PO SCH (20:46)
[2019-08-26] MEDS ORDERED: AMIODARONE HCL 200 MG TABLET PO SCH (21:00)
[2019-08-27] VITALS (31 sets, daily range): BP systolic 101–174; BP diastolic 38–95
--- NOTE | 2019-08-27 01:27 | NUR ---
Patient unresponsive and what looked like agonal breathing, Code Ru called overhead and then cancelled immediately because patient began to breathe effectively again. ABG drawn and results given to Dr. Burroughs.
[2019-08-27 01:37] LABS: ABG BASE EXCESS -4.8 mmol/L (-2.0-3.0); ABG HCO3 21.5 mmol/L (21.0-28.0); ABG OXYGEN SATURATION 86.8 % (95.0-99.0); ABG PCO2 45 mmHg (32-45)
[2019-08-27] MEDS ORDERED: DILTIAZEM HCL 125 MG/25 ML 125 MG in SODIUM CHLORIDE 0.9% 100 ML IV SCH (02:00)
[2019-08-27 02:01] LABS: BASOPHILS % (AUTO) 0.7 % (0.0-5.0); EOSINOPHILS % (AUTO) 2.6 % (0.0-8.0); HEMATOCRIT 24.3 % (36-48); LYMPHOCYTES % (AUTO) 6.4 % (21.0-51.0); MEAN CORPUSCULAR HEMOGLOBIN 24.8 pg (27.0-33.0); MEAN CORPUSCULAR HGB CONC 31.3 g/dL (32.0-36.0); MEAN CORPUSCULAR VOLUME 79.2 fL (79-99); NEUTROPHILS % (AUTO) 80.6 % (40.0-77.0); NUCLEATED RED BLOOD CELLS 0.3 % (0.0-0.19); PLATELET COUNT (AUTO) 90 K/uL (130-400); RED BLOOD CELL COUNT(AUTO) 3.07 MIL/uL (4.00-5.50); WHITE BLOOD COUNT (AUTO) 7.4 K/uL (4.8-10.8)
[2019-08-27] MEDS ORDERED: DILTIAZEM HCL 5 MG/ML 5 ML VIAL IVP ONE (02:05)
[2019-08-27] MEDS ORDERED: DILTIAZEM HCL 125 MG/25 ML VIAL IV ONE (02:09)
[2019-08-27 02:14] LABS: CREATININE 6.3 mg/dL (0.5-1.5); POTASSIUM 4.3 mmol/L (3.5-5.1)
--- NOTE | 2019-08-27 02:22 | NUR ---
Patient was confused all shift, but was starting to cooperate with cares and medication administration throughout the evening. Her pacemaker has been turned off because her heart rate has been sinus. Throughout the night she started to have A-fib runs and then return to sinus. At 0118 patient had a ventricular pause, so the pacemaker was turned back on. Shortly after this episode, she was shallow breathing, O2 sat started to decline into the 90-92% range. Code blue called and then patient started to breathe effectively again, so the code was cancelled. Patient, however, was unresponsive to pain or any stimulation but her blood pressure was in the 110 systolic and O2 saturation 98%. ABG drawn and Dr. Burroughs called to update him on patient status. Bipap ordered and additional labs drawn, Bicarb given cardizem started for rate control.
[2019-08-27 02:24] LABS: ALBUMIN 2.3 g/dL (3.5-5.0); BILIRUBIN,TOTAL 0.7 mg/dL (0.2-1.0); MAGNESIUM 2.5 mg/dL (1.80-2.40); TOTAL PROTEIN, SERUM 6.3 g/dL (6.0-8.3)
[2019-08-27] MEDS ORDERED: CALCIUM GLUCONATE 1 GM/10 ML VIAL IV ONE (02:40)
[2019-08-27 02:41] LABS: ABG BASE EXCESS 4.4 mmol/L (-2.0-3.0); ABG HCO3 28.9 mmol/L (21.0-28.0); ABG OXYGEN SATURATION 99.1 % (95.0-99.0); ABG PCO2 44 mmHg (32-45)
--- NOTE | 2019-08-27 02:45 | NUR ---
Patient starting to respond to verbal commands but continues to be lethargic. Tolerating bipap, ABG improved, patient continues to be in A-Fib with cardizem drip running.
[2019-08-27 03:47] LABS: ABG BASE EXCESS -0.5 mmol/L (-2.0-3.0); ABG HCO3 25.5 mmol/L (21.0-28.0); ABG OXYGEN SATURATION 98.1 % (95.0-99.0); ABG PCO2 49 mmHg (32-45)
[2019-08-27 04:45] LABS: ABG BASE EXCESS -2.5 mmol/L (-2.0-3.0); ABG HCO3 23.5 mmol/L (21.0-28.0); ABG OXYGEN SATURATION 96.2 % (95.0-99.0); ABG PCO2 47 mmHg (32-45)
[2019-08-27] MEDS: ZOSYN 3.375GM+NS 50ML 50 ML IV SCH ×2 (04:51→16:54)
[2019-08-27] MEDS: SODIUM BICARB 50MEQ 50ML VIAL IV PRN ×2 (04:51→05:45)
[2019-08-27 05:41] LABS: ABG BASE EXCESS -0.5 mmol/L (-2.0-3.0); ABG PCO2 45 mmHg (32-45)
--- NOTE | 2019-08-27 06:00 | NUR ---
Patient converted to sinus rhythm at 0603
[2019-08-27 06:39] LABS: ABG BASE EXCESS 2.8 mmol/L (-2.0-3.0); ABG HCO3 28.8 mmol/L (21.0-28.0); ABG OXYGEN SATURATION 98.8 % (95.0-99.0); ABG PCO2 50 mmHg (32-45)
[2019-08-27] MEDS: INSULIN HUMULIN R 100 UNIT/ML 3ML SQ SCH ×4 (07:30→21:00)
[2019-08-27 07:49] LABS: ABG BASE EXCESS 2.3 mmol/L (-2.0-3.0); ABG HCO3 28.3 mmol/L (21.0-28.0); ABG OXYGEN SATURATION 98.8 % (95.0-99.0); ABG PCO2 49 mmHg (32-45)
[2019-08-27] MEDS: SEVELAMER HCL 800 MG TABLET PO SCH ×3 (08:00→16:55)
[2019-08-27] MEDS: METOCLOPRAMIDE 10 MG/2 ML VIAL IVP SCH ×3 (08:52→16:54)
[2019-08-27] MEDS: FAMOTIDINE/PF 20 MG/2 ML VIAL IV SCH (08:52)
[2019-08-27] MEDS: CALCIUM GLUCONATE 1 GM in SODIUM CHLORIDE 0.9% 50 ML IV PRN (08:58)
[2019-08-27] MEDS: BUSPIRONE HCL 5 MG TABLET PO SCH ×2 (09:00→21:00)
[2019-08-27] MEDS: IRON SUCROSE COMPLEX 200 MG in SODIUM CHLORIDE 0.9% 50 ML IV SCH (09:20)
--- NOTE | 2019-08-27 10:20 | NUR ---
SANDEEP ESTRADA. Pt CURRENTLY ON BIPAP. Pt NOT APPROPRIATE FOR EVALUATION AT THIS TIME. JR. SYSTEMS ADMINISTRATOR COORDINATED WITH NURSE THOMPSON. EVALUATION TO BE COMPLETED WHEN Pt'S RESPIRATORY STATUS IMPROVES. Pt AT HIGH RISK FOR ASPIRATION AT THIS TIME. Addendum: 08/27/[address] SUSAN NANCE Amended: Links added.
[2019-08-27] MEDS ORDERED: MIDODRINE HCL 5 MG TABLET PO SCH (10:30)
--- NOTE | 2019-08-27 10:38 | NUR ---
DC LEFT NECK JERRELL DRAIN. DC ALL CHEST TUBES PER MD ORDERS. PATIENT TOLERATED WELL.
[2019-08-27 11:07] LABS: ABG BASE EXCESS 1.9 mmol/L (-2.0-3.0); ABG OXYGEN SATURATION 98.3 % (95.0-99.0); ABG PCO2 49 mmHg (32-45)
[2019-08-27] MEDS: AMIODARONE HCL 200 MG TABLET PO SCH (13:04)
[2019-08-27] MEDS: DAPTOMYCIN 500 MG in SODIUM CHLORIDE 0.9% 50 ML IV SCH (17:27)
--- NOTE | 2019-08-27 19:30 | NUR ---
ASSESSMENT PT RESTING QUIETLY IN BED. LETHARGIC BUT FOLLOWS COMMANDS. CALLBELL REVIEWED AND AND WITHIN REACH. ASSESSMENT COMPLETED, SEE FLOW SHEET.
[2019-08-27] MEDS: ATORVASTATIN CALCIUM 20 MG TABLET PO SCH (21:51)
[2019-08-28] VITALS (24 sets, daily range): BP systolic 110–177; BP diastolic 41–75
[2019-08-28 03:42] LABS: CREATININE 7.5 mg/dL (0.5-1.5); POTASSIUM 3.9 mmol/L (3.5-5.1)
[2019-08-28] MEDS: ZOSYN 3.375GM+NS 50ML 50 ML IV SCH ×2 (04:00→16:52)
[2019-08-28 05:20] LABS: HEMATOCRIT 22.5 % (36-48); MEAN CORPUSCULAR HGB CONC 30.7 g/dL (32.0-36.0); MEAN CORPUSCULAR VOLUME 78.4 fL (79-99); NUCLEATED RED BLOOD CELLS 0.3 % (0.0-0.19); RED BLOOD CELL COUNT(AUTO) 2.87 MIL/uL (4.00-5.50); RED CELL DISTRIBUTION WIDTH 18.3 % (11.0-15.5); WHITE BLOOD COUNT (AUTO) 6.8 K/uL (4.8-10.8)
--- NOTE | 2019-08-28 05:55 | NUR ---
DR Sara SNIDER MADE AWARE OF HGB/HCT. SEE ORDERS
[2019-08-28] MEDS: INSULIN HUMULIN R 100 UNIT/ML 3ML SQ SCH ×4 (06:28→21:00)
--- NOTE | 2019-08-28 07:00 | NUR ---
PACING WIRES NOTED TO CHEST WALL AND CONNECTED TO EXTERNAL PACER WITH BACKUP RATE OF 50
[2019-08-28] MEDS ORDERED: HYDRALAZINE HCL 20 MG/ML VIAL IV PRN (07:45)
[2019-08-28] MEDS: CLOPIDOGREL BISULFATE 75 MG TAB PO SCH (08:19)
[2019-08-28] MEDS: FAMOTIDINE/PF 20 MG/2 ML VIAL IV SCH (08:19)
[2019-08-28] MEDS: AMIODARONE HCL 200 MG TABLET PO SCH (08:19)
[2019-08-28] MEDS: SEVELAMER HCL 800 MG TABLET PO SCH ×3 (08:19→16:47)
[2019-08-28] MEDS: METOCLOPRAMIDE 10 MG/2 ML VIAL IVP SCH ×3 (08:20→16:52)
[2019-08-28] MEDS: IRON SUCROSE COMPLEX 200 MG in SODIUM CHLORIDE 0.9% 50 ML IV SCH (08:20)
[2019-08-28] MEDS ORDERED: PANTOPRAZOLE SODIUM 40 MG TABLET.DR PO SCH (08:23)
[2019-08-28] MEDS: LEVOTHYROXINE 50 MCG TABLET PO SCH (08:45)
[2019-08-28] MEDS ORDERED: HEPARIN SODIUM 5000UNIT/ML 1ML VIAL SQ SCH (09:00)
[2019-08-28] MEDS: BUSPIRONE HCL 5 MG TABLET PO SCH ×2 (09:00→22:25)
--- NOTE | 2019-08-28 09:30 | NUR ---
buspar held due to lethargy
--- NOTE | 2019-08-28 10:10 | NUR ---
DYSPHAGIA EVAL COMPLETED +S/S OF ASPIRATION WITH PUDDING TEXTURES. RECOMMEND THE CONTINUATION OF CURRENT DIET OF THIN LIQUID DIET TOLERATED PENDING MBSS. JACK SPINNER COORDINATED CARE AND RECOMMENDATIONS WITH NURSE FRANCIS. RECOMMENDATIONS: DYSPHAGIA THERAPY 3-5XWEEK TO INCREASE ORAL MOTOR STRENGTH AND PHARYNGEAL SWALLOW: LTG#1: Pt WILL TOLERATE LEAST RESTRICTIVE DIET TO MEET NUTRITION/HYDRATION WITH NO S/S OF ASPIRATION. LTG#2: SKILLED EDUCATION Pt/FAMILY/STAFF STG#1: Pt WILL PARTICIPATE IN LARYNGEAL ELEVATION/EXCURSION EXERCISES WITH 80% ACCURACY. STG#2: Pt WILL PARTICIPATE IN TONGUE BASE RETRACTION EXERCISES WITH 80% ACCURACY. STG#3: Pt WILL TOLERATE THERAPEUTIC TRIALS OF PUREED WITH NO OVERT S/S OF ASPIRATION. STG#4: SKILLED EDUCATION Pt/FAMILY/STAFF. Addendum: 08/28/[address] SUSAN NANCE Amended: Links added.
[2019-08-28] MEDS ORDERED: DILTIAZEM HCL 60 MG TABLET ONE (12:09)
[2019-08-28] MEDS: DILTIAZEM HCL 60 MG TABLET PO SCH ×2 (13:09→22:25)
[2019-08-28] MEDS ORDERED: DILTIAZEM HCL 60 MG TABLET PO SCH (14:00)
[2019-08-28] MEDS: PANTOPRAZOLE SODIUM 80 MG in SODIUM CHLORIDE 0.9% 100 ML IV SCH ×2 (14:22→22:22)
--- NOTE | 2019-08-28 14:50 | NUR ---
Dr Gonsalez's office called and notified of consult; spoke to Britney
[2019-08-28] MEDS ORDERED: PANTOPRAZOLE 40 MG/VIAL IVP SCH (15:00)
[2019-08-28 18:08] LABS: HEMATOCRIT 30.3 % (36-48)
[2019-08-28] MEDS: ATORVASTATIN CALCIUM 20 MG TABLET PO SCH (22:25)
[2019-08-29] VITALS (28 sets, daily range): BP systolic 135–180; BP diastolic 40–83
[2019-08-29] MEDS: ZOSYN 3.375GM+NS 50ML 50 ML IV SCH ×2 (05:32→18:03)
[2019-08-29 05:33] LABS: HEMATOCRIT 28.2 % (36-48); MEAN CORPUSCULAR HEMOGLOBIN 25.8 pg (27.0-33.0); MEAN CORPUSCULAR VOLUME 78.1 fL (79-99); NUCLEATED RED BLOOD CELLS 0.3 % (0.0-0.19); RED BLOOD CELL COUNT(AUTO) 3.61 MIL/uL (4.00-5.50); WHITE BLOOD COUNT (AUTO) 7.2 K/uL (4.8-10.8)
[2019-08-29] MEDS: INSULIN HUMULIN R 100 UNIT/ML 3ML SQ SCH ×4 (05:38→20:52)
[2019-08-29] MEDS: LEVOTHYROXINE 50 MCG TABLET PO SCH (05:48)
[2019-08-29 05:52] LABS: CREATININE 5.8 mg/dL (0.5-1.5); POTASSIUM 3.5 mmol/L (3.5-5.1)
[2019-08-29] MEDS: METOCLOPRAMIDE 10 MG/2 ML VIAL IVP SCH ×3 (07:30→17:00)
--- NOTE | 2019-08-29 08:45 | NUR ---
HOLD TREATMENT COMPLETED Pt CURRENTLY NPO PENDING PROCEDURE SCHEDULED FOR THIS AFTERNOON. HOLD SWALLOWING TREATMENTS OF P.O. TRIALS FOR TODAY. WASHROOM ATTENDANT WILL CONTINUE TO FOLLOW Pt. WASHROOM ATTENDANT COORDINATED WITH NURSE MOY. Addendum: 08/29/[address] LEE ANN Amended: Links added.
[2019-08-29] MEDS: IRON SUCROSE COMPLEX 200 MG in SODIUM CHLORIDE 0.9% 50 ML IV SCH (11:33)
[2019-08-29] MEDS: SEVELAMER HCL 800 MG TABLET PO SCH ×3 (12:00→17:00)
--- NOTE | 2019-08-29 12:41 | NUR ---
UPDATE TO FLOTATION TENDER HELPER- DC PLNA TO [facility] IF NEED 3 ABX OR SNF- [facility] IF ABX REDUCED BY DC. THEN SPOKE TO PT AT BEDSIDE RESPONDS APPROPRIATELY G Addendum: 08/29/19 at 1242 by JUSTO SKINNER RN CM Amended: Links added.
[2019-08-29 13:07] LABS: ABG BASE EXCESS 0.6 mmol/L (-2.0-3.0); ABG HCO3 26.6 mmol/L (21.0-28.0); ABG OXYGEN SATURATION 98.1 % (95.0-99.0); ABG PCO2 47 mmHg (32-45)
[2019-08-29] MEDS: DILTIAZEM HCL 60 MG TABLET PO SCH ×3 (14:00→20:26)
--- NOTE | 2019-08-29 14:54 | NUR ---
TO EGD VIA BED ACCOMPANIED BY ENDO NURSES. NO DISTRESS UPON TRANSFER.
[2019-08-29] MEDS ORDERED: PROPOFOL 10 MG/ML 20ML VIAL IV ONE (14:56)
--- NOTE | 2019-08-29 15:08 | NUR ---
RD NOTIFICATION Pt admitted with symptomatic Bradycardia. Pt s/p CABG, s/p transfusion, pending EGD at time of screen. Pt with ESRD, hemodialysis in place. Mild edema. Pt previously with Clear Liquid diet x5 days. Pt with Full Liquid diet in place. Pt with poor appetite at time of screen. When medically feasible, recommend advance diet as tolerated to Renal Dialysis, Heart healthy Diet order. Recommend Nepro BID RD to follow up with Nutrition education RD to continue to monitor. Please notify as additional nutrition concerns arise. Thank you. Addendum: 08/29/19 at [address] Amended: Links added.
--- NOTE | 2019-08-29 15:28 | NUR ---
BACK FROM EGD DROWSY, AROUSABLE. RESUMED BEDSIDE MONITORING. V/S MONITORED.
[2019-08-29] MEDS: BUSPIRONE HCL 5 MG TABLET PO SCH ×2 (16:13→20:26)
[2019-08-29] MEDS: AMIODARONE HCL 200 MG TABLET PO SCH (16:13)
[2019-08-29] MEDS: CLOPIDOGREL BISULFATE 75 MG TAB PO SCH ×2 (16:14→17:58)
[2019-08-29] MEDS ORDERED: LACTULOSE 20 GM/30 ML UDCUP PO SCH (16:45)
[2019-08-29] MEDS ORDERED: MAGNESIUM CITRATE 296 ML SOLUTION PO ONE (18:00)
[2019-08-29] MEDS: DAPTOMYCIN 500 MG in SODIUM CHLORIDE 0.9% 50 ML IV SCH (18:07)
--- NOTE | 2019-08-29 18:11 | NUR ---
REFUSED TO SIGN CONSENT FOR COLONOSCOPY TOMORROW. EXPLAINED INDICATION: + OCCULT BLOOD IN STOOL AND IMPORTANCE OF FINDING AREA OF BLEEDING. CONTINUED TO REFUSE. NOTIFED DR PEDRAZA AND DR ROMERO.
[2019-08-29] MEDS ORDERED: PEG 3350/NA SULF,BICARB,CL/KCL 4000 ML SOLN PO ONE (18:30)
[2019-08-29] MEDS ORDERED: BISACODYL 5 MG TABLET.DR PO SCH (19:00)
[2019-08-29] MEDS: ATORVASTATIN CALCIUM 20 MG TABLET PO SCH (20:25)
[2019-08-30] VITALS (20 sets, daily range): BP systolic 130–178; BP diastolic 40–76
[2019-08-30] MEDS: ZOSYN 3.375GM+NS 50ML 50 ML IV SCH ×2 (05:11→16:18)
[2019-08-30] MEDS: LEVOTHYROXINE 50 MCG TABLET PO SCH (06:06)
[2019-08-30] MEDS: METOCLOPRAMIDE 10 MG/2 ML VIAL IVP SCH ×3 (06:06→16:18)
[2019-08-30] MEDS: INSULIN HUMULIN R 100 UNIT/ML 3ML SQ SCH ×4 (06:19→20:53)
[2019-08-30] MEDS: SEVELAMER HCL 800 MG TABLET PO SCH ×3 (08:00→17:00)
[2019-08-30 08:58] LABS: BASOPHILS % (AUTO) 0.5 % (0.0-5.0); EOSINOPHILS % (AUTO) 3.3 % (0.0-8.0); HEMATOCRIT 30.8 % (36-48); LYMPHOCYTES % (AUTO) 7.6 % (21.0-51.0); MEAN CORPUSCULAR HGB CONC 31.5 g/dL (32.0-36.0); MEAN CORPUSCULAR VOLUME 79.4 fL (79-99); MONOCYTES % (AUTO) 9.6 % (3.0-13.0); NEUTROPHILS % (AUTO) 75.6 % (40.0-77.0); NUCLEATED RED BLOOD CELLS 0.3 % (0.0-0.19); PLATELET COUNT (AUTO) 71 K/uL (130-400); RED BLOOD CELL COUNT(AUTO) 3.88 MIL/uL (4.00-5.50); RED CELL DISTRIBUTION WIDTH 17.9 % (11.0-15.5); WHITE BLOOD COUNT (AUTO) 7.6 K/uL (4.8-10.8)
--- NOTE | 2019-08-30 09:05 | NUR ---
SWALLOWING TREATMENT COMPLETED. S: Pt COOPERATIVE WITH ALL THERAPEUTIC SWALLOWING GOALS. Pt CURRENTLY ON LIQUID DIET. Pt STABLE AND IN GOOD STATUS TO PROCEED WITH THERAPY. 0: Pt CURRENTLY TARGETING SWALLOWING GOALS, RESULTS ARE FOLLOWS: 1. Pt PARTICIPATED IN LARYNGEAL ELEVATION/EXCURSION EXERCISES WITH 60% ACCURACY. 2. Pt PARTICIPATED IN TONGUE BASE RETRACTION EXERCISES WITH 70% ACCURACY. 3. Pt PARTICIPATED IN ORAL MOTOR EXERCISES WITH 100% ACCURACY. 5. SKILLED EDUCATION Pt/FAMILY/STAFF: COMPLETED A: RN PALLIATIVE CARE EDUCATED Pt OF RISKS AND CONSEQUENCES OF ASPIRATION. Pt VERBALIZED UNDERSTANDING AND COOPERATION WITH SWALLOWING GOALS. P: RECOMMEND THE CONTINUATION CURRENT DIET PENDING MBSS. RN PALLIATIVE CARE COORDINATED CARE AND RECOMMENDATIONS WITH NURSE. RN PALLIATIVE CARE WILL CONTINUE TO FOLLOW Pt DURING THE LENGTH OF STAY IN THE HOSPITAL TO CONTINUE ADDRESSING SWALLOWING GOALS. Addendum: 08/30/[address] SUSAN NANCE Amended: Links added.
[2019-08-30 09:19] LABS: ALBUMIN 2.1 g/dL (3.5-5.0); ASPARTATE AMINOTRANSFERASE 23 U/L (10-37); BILIRUBIN,TOTAL 0.8 mg/dL (0.2-1.0); CARBON DIOXIDE 29 mmol/L (21-32); CHLORIDE 97 mmol/L (101-111); CREATININE 7.2 mg/dL (0.5-1.5); GLOMERULAR FILTR. RATE CALC 6 mL/min (>60); GLUCOSE,RANDOM 103 mg/dL (70-105); PHOSPHORUS 5.4 mg/dL (2.5-4.9); POTASSIUM 3.4 mmol/L (3.5-5.1); SODIUM SERUM 141 mmol/L (136-145); TOTAL PROTEIN, SERUM 6.3 g/dL (6.0-8.3); UREA NITROGEN, BLOOD 59 mg/dL (7-18)
[2019-08-30 09:22] LABS: ALANINE AMINOTRANSFERASE < 6 U/L (12-78)
[2019-08-30] MEDS: CLOPIDOGREL BISULFATE 75 MG TAB PO SCH (09:49)
[2019-08-30] MEDS: DILTIAZEM HCL 60 MG TABLET PO SCH ×3 (09:50→20:47)
[2019-08-30] MEDS: PANTOPRAZOLE SODIUM 40 MG TABLET.DR PO SCH (09:50)
[2019-08-30] MEDS: BUSPIRONE HCL 5 MG TABLET PO SCH ×2 (09:52→20:47)
[2019-08-30] MEDS: AMIODARONE HCL 200 MG TABLET PO SCH (09:52)
[2019-08-30] MEDS: IRON SUCROSE COMPLEX 200 MG in SODIUM CHLORIDE 0.9% 250 ML IV SCH (09:53)
--- NOTE | 2019-08-30 10:00 | NUR ---
MBSS COMPLETED NO ASPIRATION. RECOMMEND MECHANICAL SOFT (NO MIXED TEXTURES), THIN LIQUIDS, PILLS CRUSHED WITH APPLESAUCE TOLERATED. COMPENSATORY STRATEGIES TO FOLLOW: 1. SIT UPRIGHT 2. SMALL BITES/SIPS 3. ALTERNATE BITES/SIPS 4. TWO EXTRA DRY SWALLOWS AFTER EACH BITE/SIPS RECOMMENDATIONS: DYSPHAGIA THERAPY 3-5XWEEK TO INCREASE ORAL MOTOR STRENGTH AND PHARYNGEAL SWALLOW: LTG#1: Pt WILL TOLERATE LEAST RESTRICTIVE DIET TO MEET NUTRITION/HYDRATION WITH NO S/S OF ASPIRATION. LTG#2: SKILLED EDUCATION Pt/FAMILY/STAFF STG#1: Pt WILL PARTICIPATE IN LARYNGEAL ELEVATION/EXCURSION EXERCISES WITH 80% ACCURACY. STG#2: Pt WILL PARTICIPATE IN TONGUE BASE RETRACTION EXERCISES WITH 80% ACCURACY. STG#3: Pt WILL PARTICIPATE IN ORAL MOTOR EXERCISES WITH 80% ACCURACY. STG#4: Pt WILL TOLERATE THERAPEUTIC TRIALS OF MIXED TEXTURES WITH NO OVERT S/S OF ASPIRATION. STG#5: Pt WILL BE ABLE TO PARTICIPATE IN MBSS AFTER 2-4 WEEKS OF THERAPEUTIC INTERVENTION. STG#6: SKILLED EDUCATION Pt/FAMILY/STAFF. ELECTRICAL & INSTRUMENTATION SUPERVISOR COORDINATED CARE AND RECOMMENDATIONS WITH NURSE AND Pt. Addendum: 08/30/[address] SUSAN NANCE Amended: Links added.
[2019-08-30 10:26] LABS: INR > 7.00 (0.85-1.15); PROTHROMBIN TIME > 63.0 SEC (9.6-11.6)
[2019-08-30 10:27] LABS: PARTIAL THROMBOPLASTIN TIME > 120.0 SEC (26.3-35.5)
--- NOTE | 2019-08-30 11:00 | NUR ---
ABNORMAL COAGS. NOTIFIED DR MERCADO. HE ORDERED RECOLLECTION. RESULTS RELAYED TO DR ROMERO. ORDERS RECEIVED AND CARRIED OUT.
[2019-08-30 11:59] LABS: INR > 7.00 (0.85-1.15); PARTIAL THROMBOPLASTIN TIME > 120.0 SEC (26.3-35.5); PROTHROMBIN TIME > 63.0 SEC (9.6-11.6)
[2019-08-30] MEDS ORDERED: PHARMACY COMMUNICATION MISC SCH ×3 (12:30→17:45)
--- NOTE | 2019-08-30 12:39 | NUR ---
NOTIFIED DR OVALLES. HE STATED NOT TO GIVE PATIENT THE VIT K PO THAT DR ROMERO ORDERED FOR NOW AND DRAW PTT MIXING STUDY IMMEDIATELY AND AN HOUR AFTER. NOTIFIED LAB. ORDERS ENTERED.
[2019-08-30] MEDS: PHYTONADIONE 10 MG/1 ML AMP PO SCH (18:18)
[2019-08-30] MEDS: ATORVASTATIN CALCIUM 20 MG TABLET PO SCH (20:47)
--- NOTE | 2019-08-30 22:00 | NUR ---
PT C/O PAIN TO BACK AREA, GIVEN TRAMADOL 100MG PO. AND WARM PACKS.
[2019-08-30] MEDS: TRAMADOL HCL 50 MG TABLET PO PRN (22:25)
[2019-08-31 03:00] VITALS: BP 151/59
[2019-08-31 04:56] LABS: INR 1.56 (0.85-1.15); PARTIAL THROMBOPLASTIN TIME 50.4 SEC (26.3-35.5); PROTHROMBIN TIME 16.6 SEC (9.6-11.6)
[2019-08-31] MEDS: ZOSYN 3.375GM+NS 50ML 50 ML IV SCH ×2 (04:58→16:58)
[2019-08-31] MEDS: INSULIN HUMULIN R 100 UNIT/ML 3ML SQ SCH ×4 (06:10→21:00)
[2019-08-31] MEDS: METOCLOPRAMIDE 10 MG/2 ML VIAL IVP SCH ×3 (06:19→16:58)
[2019-08-31] MEDS: LEVOTHYROXINE 50 MCG TABLET PO SCH (06:19)
[2019-08-31 08:00] VITALS: BP 144/55
[2019-08-31] MEDS: SEVELAMER HCL 800 MG TABLET PO SCH ×3 (08:44→16:42)
[2019-08-31] MEDS: AMIODARONE HCL 200 MG TABLET PO SCH (08:44)
[2019-08-31] MEDS: BUSPIRONE HCL 5 MG TABLET PO SCH (08:51)
[2019-08-31] MEDS: PANTOPRAZOLE SODIUM 40 MG TABLET.DR PO SCH (08:51)
[2019-08-31] MEDS: DILTIAZEM HCL 60 MG TABLET PO SCH ×3 (08:54→19:57)
[2019-08-31] MEDS: CLOPIDOGREL BISULFATE 75 MG TAB PO SCH (08:55)
[2019-08-31] MEDS: IRON SUCROSE COMPLEX 200 MG in SODIUM CHLORIDE 0.9% 250 ML IV SCH (08:55)
[2019-08-31 11:33] VITALS: BP 176/74
[2019-08-31] MEDS: PHYTONADIONE 10 MG/1 ML AMP PO SCH (12:53)
[2019-08-31] MEDS ORDERED: LISINOPRIL 10 MG TABLET PO SCH (13:55)
[2019-08-31 16:00] VITALS: BP 173/71
--- NOTE | 2019-08-31 18:38 | NUR ---
REMOVED RIGHT IJ CORDIS ORDERED BY MD. PATIENT TOLERATED.
[2019-08-31 19:00] VITALS: BP 177/68
[2019-08-31] MEDS: ATORVASTATIN CALCIUM 20 MG TABLET PO SCH (19:57)
[2019-08-31] MEDS: DAPTOMYCIN 500 MG in SODIUM CHLORIDE 0.9% 50 ML IV SCH (19:58)
[2019-08-31] MEDS: ACETAMINOPHEN 325 MG TAB PO PRN (20:03)
--- NOTE | 2019-08-31 21:00 | NUR ---
PT ABLE TO TAKE MEDICATIONS CRUSHED WITH JELLO. STATES SHE STILL HAS HEADACHES. ICE PACKS PROVIDED.STATES HELP IMPROVE HEADACHE.
[2019-08-31 23:00] VITALS: BP 153/58
[2019-09-01 03:00] VITALS: BP 184/68
[2019-09-01 03:49] LABS: HEMATOCRIT 30.7 % (36-48); MEAN CORPUSCULAR HEMOGLOBIN 24.9 pg (27.0-33.0); MEAN CORPUSCULAR HGB CONC 31.6 g/dL (32.0-36.0); MEAN CORPUSCULAR VOLUME 78.7 fL (79-99); PLATELET COUNT (AUTO) 74 K/uL (130-400); RED CELL DISTRIBUTION WIDTH 17.3 % (11.0-15.5); WHITE BLOOD COUNT (AUTO) 11.1 K/uL (4.8-10.8)
[2019-09-01] MEDS: ACETAMINOPHEN 325 MG TAB PO PRN ×2 (03:56→21:40)
[2019-09-01 04:03] LABS: CREATININE 6.5 mg/dL (0.5-1.5)
[2019-09-01 04:05] LABS: INR 1.12 (0.85-1.15); PARTIAL THROMBOPLASTIN TIME 40.7 SEC (26.3-35.5)
[2019-09-01 04:17] LABS: BAND NEUTROPHILS % (MANUAL) 2 % (0-2); EOSINOPHILS % (MANUAL) 4 % (1-6); LYMPHOCYTES % (MANUAL) 9 % (22-44); MONOCYTES % (MANUAL) 6 % (2-9); SEGMENTED NEUTROPHILS % 79 % (40-70)
[2019-09-01 04:18] LABS: MAN.DIFF COMMENT-IMPRESSION MANUAL DIFFERENTIAL; PLATELET MORPHOLOGY COMMENT DECREASED
[2019-09-01] MEDS: ZOSYN 3.375GM+NS 50ML 50 ML IV SCH ×2 (05:11→16:03)
[2019-09-01] MEDS ORDERED: LIDOCAINE HCL-MPF 1% 2ML VIAL ONE (05:46)
[2019-09-01] MEDS: METOCLOPRAMIDE 10 MG/2 ML VIAL IVP SCH ×3 (06:26→16:06)
[2019-09-01] MEDS: LEVOTHYROXINE 50 MCG TABLET PO SCH (06:29)
[2019-09-01] MEDS: INSULIN HUMULIN R 100 UNIT/ML 3ML SQ SCH ×4 (06:56→20:55)
[2019-09-01 07:00] VITALS: BP 117/79
[2019-09-01] MEDS: SEVELAMER HCL 800 MG TABLET PO SCH ×3 (08:00→16:06)
[2019-09-01] MEDS: IRON SUCROSE COMPLEX 200 MG in SODIUM CHLORIDE 0.9% 250 ML IV SCH (09:00)
[2019-09-01 11:00] VITALS: BP 179/73
[2019-09-01] MEDS: AMIODARONE HCL 200 MG TABLET PO SCH (11:21)
[2019-09-01] MEDS: DILTIAZEM HCL 60 MG TABLET PO SCH ×3 (11:23→21:06)
[2019-09-01] MEDS: PANTOPRAZOLE SODIUM 40 MG TABLET.DR PO SCH (11:25)
[2019-09-01] MEDS: CLOPIDOGREL BISULFATE 75 MG TAB PO SCH (11:27)
[2019-09-01] MEDS: LISINOPRIL 10 MG TABLET PO SCH (11:28)
--- NOTE | 2019-09-01 12:31 | NUR ---
ORDER FOR SNF. [facility] PREVIOUSLY DISCUSSED WITH PATIENT VERBAL KENIA RECD. WILL PREPARE PKT Addendum: 09/01/19 at 1232 by JUSTO SKINNER RN CM Amended: Links added.
[2019-09-01 16:00] VITALS: BP 137/70
[2019-09-01] MEDS: PHYTONADIONE 10 MG/1 ML AMP PO SCH (16:04)
[2019-09-01 20:00] VITALS: BP 154/69
[2019-09-01] MEDS: ATORVASTATIN CALCIUM 20 MG TABLET PO SCH (21:06)
--- NOTE | 2019-09-01 22:00 | NUR ---
PT ABLE TO STAND WITH ASSISTANCE TO BEDSIDE COMMODE. HAD BM. DOES GET SOB WITH OXYGEN IN PLACE. ABLE TO TAKE MEDS CRUSHED.STATED WAS ABLE TO EAT FOOD TODAY. TOLERATED WELL PER PT.
[2019-09-02] VITALS: BP 131/52
[2019-09-02 04:00] VITALS: BP 146/73
[2019-09-02 04:58] LABS: BASOPHILS % (AUTO) 0.7 % (0.0-5.0); EOSINOPHILS % (AUTO) 4.8 % (0.0-8.0); HEMATOCRIT 29.5 % (36-48); LYMPHOCYTES % (AUTO) 7.1 % (21.0-51.0); MEAN CORPUSCULAR HEMOGLOBIN 25.9 pg (27.0-33.0); MEAN CORPUSCULAR HGB CONC 32.9 g/dL (32.0-36.0); MEAN CORPUSCULAR VOLUME 78.7 fL (79-99); MONOCYTES % (AUTO) 7.2 % (3.0-13.0); NEUTROPHILS % (AUTO) 76.7 % (40.0-77.0); NUCLEATED RED BLOOD CELLS 0.1 % (0.0-0.19); PLATELET COUNT (AUTO) 78 K/uL (130-400); RED BLOOD CELL COUNT(AUTO) 3.75 MIL/uL (4.00-5.50); RED CELL DISTRIBUTION WIDTH 17.4 % (11.0-15.5); WHITE BLOOD COUNT (AUTO) 14.5 K/uL (4.8-10.8)
[2019-09-02 05:11] LABS: INR 1.1 (0.85-1.15); PARTIAL THROMBOPLASTIN TIME 39.6 SEC (26.3-35.5); PROTHROMBIN TIME 11.8 SEC (9.6-11.6)
[2019-09-02 05:20] LABS: ALBUMIN 2.3 g/dL (3.5-5.0); ASPARTATE AMINOTRANSFERASE 38 U/L (10-37); BILIRUBIN,TOTAL 0.8 mg/dL (0.2-1.0); CARBON DIOXIDE 26 mmol/L (21-32); CHLORIDE 95 mmol/L (101-111); CREATININE 7.5 mg/dL (0.5-1.5); GLOMERULAR FILTR. RATE CALC 6 mL/min (>60); GLUCOSE,RANDOM 95 mg/dL (70-105); SODIUM SERUM 136 mmol/L (136-145); TOTAL PROTEIN, SERUM 6.5 g/dL (6.0-8.3); UREA NITROGEN, BLOOD 50 mg/dL (7-18)
--- NOTE | 2019-09-02 05:20 | NUR ---
PT NOW AFIB STABLE IN THE 80'S. ASYMPTOMATIC.
[2019-09-02] MEDS: LEVOTHYROXINE 50 MCG TABLET PO SCH (05:49)
[2019-09-02] MEDS: METOCLOPRAMIDE 10 MG/2 ML VIAL IVP SCH ×3 (05:49→16:35)
[2019-09-02] MEDS: INSULIN HUMULIN R 100 UNIT/ML 3ML SQ SCH ×4 (06:22→20:03)
[2019-09-02 06:25] LABS: ALANINE AMINOTRANSFERASE < 6 U/L (12-78)
[2019-09-02 07:00] VITALS: BP 152/66
[2019-09-02] MEDS: SEVELAMER HCL 800 MG TABLET PO SCH ×3 (08:44→16:34)
[2019-09-02 11:43] VITALS: BP 156/60
--- NOTE | 2019-09-02 12:49 | NUR ---
REFERRAL IN PROCESS- SENT TO [facility]- QUESTION RE DAPTOMYCIN, CALL TO [facility] TO ALEYDA MCCORMICK, CONTACTED [facility] TO UPDATE THEM ON THE REFERRAL Addendum: 09/02/19 at 1250 by JUSTO SKINNER RN CM Amended: Links added.
--- NOTE | 2019-09-02 13:41 | NUR ---
FOLLOW UP COMPLETED. SILK SPOOLER COORDINATED WITH NURSE. Pt IS TOLERATING P.O. DIET RECOMMENDATIONS WITH NO S/S OF ASPIRATION. SILK SPOOLER WILL CONTINUE TO FOLLOW Pt TO ADDRESS SWALLOWING GOALS. Addendum: 09/02/[address] SUSAN NANCE Amended: Links added.
[2019-09-02] MEDS: ACETAMINOPHEN 325 MG TAB PO PRN (14:21)
[2019-09-02 15:00] VITALS: BP 168/74
[2019-09-02] MEDS: LISINOPRIL 10 MG TABLET PO SCH (16:33)
[2019-09-02] MEDS: AMIODARONE HCL 200 MG TABLET PO SCH (16:33)
[2019-09-02] MEDS: PANTOPRAZOLE SODIUM 40 MG TABLET.DR PO SCH (16:34)
[2019-09-02] MEDS: CLOPIDOGREL BISULFATE 75 MG TAB PO SCH (16:34)
[2019-09-02] MEDS: IRON SUCROSE COMPLEX 200 MG in SODIUM CHLORIDE 0.9% 250 ML IV SCH ×2 (17:36→18:26)
[2019-09-02] MEDS ORDERED: DILTIAZEM HCL 120 MG CAP.SR.24H PO SCH (18:30)
[2019-09-02 20:00] VITALS: BP 155/63
[2019-09-02] MEDS: ATORVASTATIN CALCIUM 20 MG TABLET PO SCH (20:12)
[2019-09-02] MEDS ORDERED: TEMAZEPAM 7.5 MG CAPSULE PO ONE (22:45)
[2019-09-03] VITALS (7 sets, daily range): BP systolic 134–157; BP diastolic 67–88
[2019-09-03 03:42] LABS: BASOPHILS % (AUTO) 0.4 % (0.0-5.0); EOSINOPHILS % (AUTO) 3.9 % (0.0-8.0); HEMATOCRIT 27.3 % (36-48); LYMPHOCYTES % (AUTO) 5.6 % (21.0-51.0); MEAN CORPUSCULAR HEMOGLOBIN 25.4 pg (27.0-33.0); MEAN CORPUSCULAR HGB CONC 32.2 g/dL (32.0-36.0); MEAN CORPUSCULAR VOLUME 78.7 fL (79-99); MONOCYTES % (AUTO) 7.7 % (3.0-13.0); NEUTROPHILS % (AUTO) 79.5 % (40.0-77.0); PLATELET COUNT (AUTO) 74 K/uL (130-400); RED BLOOD CELL COUNT(AUTO) 3.47 MIL/uL (4.00-5.50); RED CELL DISTRIBUTION WIDTH 17.2 % (11.0-15.5)
[2019-09-03 04:02] LABS: ALBUMIN 2.2 g/dL (3.5-5.0); ASPARTATE AMINOTRANSFERASE 36 U/L (10-37); BILIRUBIN,TOTAL 0.8 mg/dL (0.2-1.0); CARBON DIOXIDE 29 mmol/L (21-32); CHLORIDE 96 mmol/L (101-111); CREATININE 5.5 mg/dL (0.5-1.5); GLOMERULAR FILTR. RATE CALC 8 mL/min (>60); GLUCOSE,RANDOM 83 mg/dL (70-105); PHOSPHORUS 3.1 mg/dL (2.5-4.9); POTASSIUM 3.2 mmol/L (3.5-5.1); SODIUM SERUM 135 mmol/L (136-145); TOTAL PROTEIN, SERUM 6.4 g/dL (6.0-8.3); UREA NITROGEN, BLOOD 31 mg/dL (7-18)
[2019-09-03 04:24] LABS: ALANINE AMINOTRANSFERASE < 6 U/L (12-78)
[2019-09-03] MEDS: ONDANSETRON ODT 4 MG TAB PO PRN ×2 (05:29→22:28)
[2019-09-03] MEDS: METOCLOPRAMIDE 10 MG/2 ML VIAL IVP SCH (05:51)
[2019-09-03] MEDS: INSULIN HUMULIN R 100 UNIT/ML 3ML SQ SCH ×4 (05:51→21:00)
[2019-09-03] MEDS: LEVOTHYROXINE 50 MCG TABLET PO SCH (06:23)
[2019-09-03] MEDS: SEVELAMER HCL 800 MG TABLET PO SCH ×2 (08:15→17:02)
[2019-09-03] MEDS: DILTIAZEM HCL 120 MG CAP.SR.24H PO SCH (08:15)
[2019-09-03] MEDS: AMIODARONE HCL 200 MG TABLET PO SCH (08:15)
[2019-09-03] MEDS: LISINOPRIL 10 MG TABLET PO SCH (08:15)
[2019-09-03] MEDS: CLOPIDOGREL BISULFATE 75 MG TAB PO SCH (08:15)
[2019-09-03] MEDS: IRON SUCROSE COMPLEX 200 MG in SODIUM CHLORIDE 0.9% 250 ML IV SCH (08:16)
[2019-09-03] MEDS: PANTOPRAZOLE SODIUM 40 MG TABLET.DR PO SCH (08:16)
--- NOTE | 2019-09-03 09:21 | NUR ---
patient prefers to be seen later today, states that she needs to sleep.Notified ARIADNE Rosales regarding patient's discretion. Addendum: 09/03/19 at 0922 by WIL ANTHONY, PT PT Amended: Links added.
--- NOTE | 2019-09-03 12:10 | NUR ---
SWALLOWING TREATMENT COMPLETED RECOMMEND DIET DOWNGRADE TO PUREED. S: Pt COOPERATIVE WITH ALL THERAPEUTIC SWALLOWING GOALS. Pt STABLE AND IN GOOD RESPIRATORY STATUS TO PROCEED WITH THERAPY. Pt STATED THAT SHE IS UNABLE TO REMOVE POCKETED FOOD IN THE LEFT ORAL CAVITY SIDE. Pt ATE LESS THAN 10% OF HER MEAL DURING LUNCH. Pt AGREES TO PUREED DIET TO MEET HER NUTRITION DURING MEAL TIMES. 0: Pt CURRENTLY TARGETING SWALLOWING GOALS, RESULTS ARE FOLLOWS: 1. Pt PARTICIPATED IN LARYNGEAL ELEVATION/EXCURSION EXERCISES WITH 50% ACCURACY. 2. Pt PARTICIPATED IN TONGUE BASE RETRACTION EXERCISES WITH 60% ACCURACY. 3. Pt PARTICIPATED IN ORAL MOTOR EXERCISES WITH 100% ACCURACY. NOTE: TONGUE STRENGTH, COORDINATION, AND ROM WITHIN FUNCTIONAL LIMITS. 4. SKILLED EDUCATION Pt/FAMILY/STAFF: COMPLETED A: STONE BELT SANDER EDUCATED Pt ON RISKS AND CONSEQUENCES OF ASPIRATION. Pt VERBALIZED UNDERSTANDING AND COOPERATION WITH SWALLOWING GOALS. P: RECOMMEND PUREED SOLIDS. STONE BELT SANDER WILL CONTINUE TO FOLLOW Pt DURING THE LENGTH OF STAY IN THE HOSPITAL TO CONTINUE ADDRESSING SWALLOWING GOALS. Addendum: 09/03/[address] SUSAN NANCE Amended: Links added.
[2019-09-03] MEDS: ACETAMINOPHEN 325 MG TAB PO PRN (17:19)
[2019-09-03] MEDS: ATORVASTATIN CALCIUM 20 MG TABLET PO SCH (20:43)
[2019-09-04] MEDS: ACETAMINOPHEN 325 MG TAB PO PRN (01:57)
[2019-09-04 04:18] VITALS: BP 156/87
[2019-09-04 05:18] LABS: BASOPHILS % (AUTO) 0.6 % (0.0-5.0); EOSINOPHILS % (AUTO) 3.8 % (0.0-8.0); HEMATOCRIT 31.8 % (36-48); LYMPHOCYTES % (AUTO) 5.5 % (21.0-51.0); MEAN CORPUSCULAR HEMOGLOBIN 25.1 pg (27.0-33.0); MEAN CORPUSCULAR HGB CONC 31.4 g/dL (32.0-36.0); MEAN CORPUSCULAR VOLUME 79.7 fL (79-99); MONOCYTES % (AUTO) 6.6 % (3.0-13.0); NEUTROPHILS % (AUTO) 81.5 % (40.0-77.0); PLATELET COUNT (AUTO) 99 K/uL (130-400); RED BLOOD CELL COUNT(AUTO) 3.99 MIL/uL (4.00-5.50); RED CELL DISTRIBUTION WIDTH 17.6 % (11.0-15.5); WHITE BLOOD COUNT (AUTO) 14.9 K/uL (4.8-10.8)
[2019-09-04] MEDS: INSULIN HUMULIN R 100 UNIT/ML 3ML SQ SCH ×3 (05:50→15:40)
[2019-09-04 06:16] LABS: ALBUMIN 2.5 g/dL (3.5-5.0); BILIRUBIN,TOTAL 0.7 mg/dL (0.2-1.0); CREATININE 6.8 mg/dL (0.5-1.5); POTASSIUM 3.6 mmol/L (3.5-5.1); TOTAL PROTEIN, SERUM 7.2 g/dL (6.0-8.3)
[2019-09-04] MEDS: LEVOTHYROXINE 50 MCG TABLET PO SCH (06:21)
[2019-09-04 07:30] VITALS: BP 154/88
[2019-09-04] MEDS: SEVELAMER HCL 800 MG TABLET PO SCH ×3 (08:00→16:06)
[2019-09-04] MEDS: DILTIAZEM HCL 120 MG CAP.SR.24H PO SCH (08:11)
[2019-09-04] MEDS: AMIODARONE HCL 200 MG TABLET PO SCH (08:12)
[2019-09-04] MEDS: CLOPIDOGREL BISULFATE 75 MG TAB PO SCH (08:12)
[2019-09-04] MEDS: LISINOPRIL 10 MG TABLET PO SCH (08:12)
[2019-09-04] MEDS: PANTOPRAZOLE SODIUM 40 MG TABLET.DR PO SCH (08:12)
[2019-09-04 11:00] VITALS: BP 148/83
--- NOTE | 2019-09-04 12:45 | NUR ---
HOLD TREATMENT Pt RECEIVING DIALYSIS AT THIS TIME. HOLD TREATMENT FOR TODAY. PRODUCTION SUPPORT SPECIALIST WILL CONTINUE TO FOLLOW Pt TO ADDRESS SWALLOWING GOALS. PRODUCTION SUPPORT SPECIALIST COORDINATED WITH NURSE LYLE. Addendum: 09/04/[address] SUSAN NANCE Amended: Links added.
--- NOTE | 2019-09-04 12:59 | NUR ---
RD FOLLOW UP Pt tolerating Renal dialysis, 75gm CC, Puree diet order. Pt with no report of GI distress. Pt reports likes Nepro, but only Butter Pecan flavor. RD provided Heart Healthy, Renal Dialysis Nutrition education. Recommend continue current diet order. RD provided nutrition education. RD to continue to monitor. Please notify as additional nutrition concerns arise. Thank you. Addendum: 09/04/19 at [address] Amended: Links added.
--- NOTE | 2019-09-04 13:02 | NUR ---
NUTRITION EDUCATION CHARBEL provided Heart Healthy, Renal Dialysis Nutrition Education. CHARBEL reviewed reference materials and handouts with Pt. Pt verbalized understanding. CHARBEL encouraged Pt to notify as questions or concerns arise. Addendum: 09/04/19 at [address] Amended: Links added.
[2019-09-04] MEDS ORDERED: ALPRAZOLAM 0.25 MG TABLET PO PRN (13:45)
[2019-09-04] MEDS ORDERED: ALPRAZOLAM 0.25 MG TABLET ONE (13:50)
[2019-09-04 16:00] VITALS: BP 171/73
[2019-09-04] MEDS ORDERED: LEVOFLOXACIN 750 MG TABLET PO SCH (17:15)
[2019-09-04 17:40] VITALS: BP 148/53
--- NOTE | 2019-09-04 18:34 | NUR ---
DISCHARGE INSTRUCTIONS GIVEN TO PT. TEACH BACK METHOD USED TO EDUCATE ABOUT DIET, WOUND CARE, USE OF IS, ACTIVITY RESTRICTIONS, CARDIAC REHAB, DIALYSIS, AND F.U APPOINTMENTS. PATIENT DOES NOT HAVE AN IV LINE. TELE PACK REMOVED AND RETURNED. ALL BELONGINGS PACKED. SUTURES REMOVED ASEPTICALLY. SBAR REPORTM GIVEN TO DUTCH AYALA LVN OF [facility]. [id number] AMMY KOHLER WAS MADE AWARE OF TRANSFER.
== END 2019-09-04 18:23 | DRG 233 ==
LOC: DAHIP 20:29 → PAH.CVR 08-24 10:19 → DAHIP 08-25 06:19 → 4DH 08-30 17:52
PROVIDERS: ADMIT Internal Medicine; ATTEND Internal Medicine
PROC: 4A023N7 Measurement of Cardiac Sampling and Pressure, Left Heart, Percutaneous Approach (ICD-10-PCS; 2019-08-19)
PROC: B2111ZZ Fluoroscopy of Multiple Coronary Arteries using Low Osmolar Contrast (ICD-10-PCS; 2019-08-19)
PROC: B2151ZZ Fluoroscopy of Left Heart using Low Osmolar Contrast (ICD-10-PCS; 2019-08-19)
PROC: B3121ZZ Fluoroscopy of Left Subclavian Artery using Low Osmolar Contrast (ICD-10-PCS; 2019-08-19)
PROC: 5A1223Z Performance of Cardiac Pacing, Continuous (ICD-10-PCS; 2019-08-19)
PROC: 5A1D70Z Performance of Urinary Filtration, Intermittent, Less than 6 Hours Per Day (ICD-10-PCS; 2019-08-23)
PROC: 5A1D70Z Performance of Urinary Filtration, Intermittent, Less than 6 Hours Per Day (ICD-10-PCS; 2019-08-23)
PROC: 5A1D70Z Performance of Urinary Filtration, Intermittent, Less than 6 Hours Per Day (ICD-10-PCS; 2019-08-23)
PROC: 021009W Bypass Coronary Artery, One Artery from Aorta with Autologous Venous Tissue, Open Approach (ICD-10-PCS; 2019-08-24)
PROC: 06BQ4ZZ Excision of Left Saphenous Vein, Percutaneous Endoscopic Approach (ICD-10-PCS; 2019-08-24)
PROC: 02100Z9 Bypass Coronary Artery, One Artery from Left Internal Mammary, Open Approach (ICD-10-PCS; principal; 2019-08-24 09:16)
PROC: 03CJ0ZZ Extirpation of Matter from Left Common Carotid Artery, Open Approach (ICD-10-PCS; 2019-08-24 09:16)
PROC: 5A1D70Z Performance of Urinary Filtration, Intermittent, Less than 6 Hours Per Day (ICD-10-PCS; 2019-08-26)
PROC: 5A12012 Performance of Cardiac Output, Single, Manual (ICD-10-PCS; 2019-08-27)
PROC: 5A09357 Assistance with Respiratory Ventilation, Less than 24 Consecutive Hours, Continuous Positive Airway Pressure (ICD-10-PCS; 2019-08-27)
PROC: 5A1D70Z Performance of Urinary Filtration, Intermittent, Less than 6 Hours Per Day (ICD-10-PCS; 2019-08-28)
PROC: 5A09357 Assistance with Respiratory Ventilation, Less than 24 Consecutive Hours, Continuous Positive Airway Pressure (ICD-10-PCS; 2019-08-28)
PROC: 5A09357 Assistance with Respiratory Ventilation, Less than 24 Consecutive Hours, Continuous Positive Airway Pressure (ICD-10-PCS; 2019-08-29)
PROC: 0DJ08ZZ Inspection of Upper Intestinal Tract, Via Natural or Artificial Opening Endoscopic (ICD-10-PCS; 2019-08-29)
PROC: 5A1D70Z Performance of Urinary Filtration, Intermittent, Less than 6 Hours Per Day (ICD-10-PCS; 2019-08-30)
PROC: 5A1D70Z Performance of Urinary Filtration, Intermittent, Less than 6 Hours Per Day (ICD-10-PCS; 2019-09-02)
PROC: 30233R1 Transfusion of Nonautologous Platelets into Peripheral Vein, Percutaneous Approach (ICD-10-PCS; 2019-09-02)
PROC: 30233N1 Transfusion of Nonautologous Red Blood Cells into Peripheral Vein, Percutaneous Approach (ICD-10-PCS; 2019-09-02)
PROC: 5A1D70Z Performance of Urinary Filtration, Intermittent, Less than 6 Hours Per Day (ICD-10-PCS; 2019-09-04)
DX: I21.4 Non-ST elevation (NSTEMI) myocardial infarction (principal); N18.6 End stage renal disease; I50.33 Acute on chronic diastolic (congestive) heart failure; G92 Toxic encephalopathy; J18.9 Pneumonia, unspecified organism; J96.91 Respiratory failure, unspecified with hypoxia; R65.20 Severe sepsis without septic shock; D68.59 Other primary thrombophilia; D61.818 Other pancytopenia; D62 Acute posthemorrhagic anemia; E87.2 Acidosis; F05 Delirium due to known physiological condition; I47.2 Ventricular tachycardia; K63.3 Ulcer of intestine; I25.10 Atherosclerotic heart disease of native coronary artery without angina pectoris; I49.5 Sick sinus syndrome; I48.0 Paroxysmal atrial fibrillation; E87.5 Hyperkalemia; R19.7 Diarrhea, unspecified; G52.9 Cranial nerve disorder, unspecified; D63.8 Anemia in other chronic diseases classified elsewhere; K21.0 Gastro-esophageal reflux disease with esophagitis; K29.00 Acute gastritis without bleeding; B95.7 Other staphylococcus as the cause of diseases classified elsewhere; B96.89 Other specified bacterial agents as the cause of diseases classified elsewhere; D46.9 Myelodysplastic syndrome, unspecified; D50.9 Iron deficiency anemia, unspecified; E11.40 Type 2 diabetes mellitus with diabetic neuropathy, unspecified; E66.9 Obesity, unspecified; E78.00 Pure hypercholesterolemia, unspecified; E78.1 Pure hyperglyceridemia; E78.5 Hyperlipidemia, unspecified; E87.6 Hypokalemia; E89.0 Postprocedural hypothyroidism; I11.0 Hypertensive heart disease with heart failure; H54.7 Unspecified visual loss; I27.20 Pulmonary hypertension, unspecified; I45.9 Conduction disorder, unspecified; I65.23 Occlusion and stenosis of bilateral carotid arteries; J98.4 Other disorders of lung; K21.9 Gastro-esophageal reflux disease without esophagitis; K55.20 Angiodysplasia of colon without hemorrhage; Z68.26 Body mass index [BMI] 26.0-26.9, adult; Z99.2 Dependence on renal dialysis; I25.2 Old myocardial infarction; Z88.6 Allergy status to analgesic agent; Z88.8 Allergy status to other drugs, medicaments and biological substances; Z74.01 Bed confinement status; Z79.01 Long term (current) use of anticoagulants; Z79.02 Long term (current) use of antithrombotics/antiplatelets; Z79.82 Long term (current) use of aspirin; Z79.899 Other long term (current) drug therapy; Z86.73 Personal history of transient ischemic attack (TIA), and cerebral infarction without residual deficits; Z95.1 Presence of aortocoronary bypass graft; Z95.0 Presence of cardiac pacemaker; Z93.1 Gastrostomy status; Z90.710 Acquired absence of both cervix and uterus
CPT/HCPCS: 33210; 36415; 36430; 43235; 70450; 71045; 74230; 76700; 80048; 80053; 80074; 82140; 82270; 82330; 82435; 82550; 82728; 82803; 82947; 82948; 83036; 83540; 83550; 83605; 83735; 83874; 84100; 84132; 84145; 84295; 84443; 84484; 85014; 85018; 85025; 85027; 85347; 85610; 85730; 85732; 86850; 86900; 86901; 86922; 86999; 87040; 87077; 87186; 88304; 88311; 90935; 92526; 92610; 92611; 92950; 93005; 93306; 93356; 93458; 93880; 94002; 94010; 94150; 94660; 97039; 99156; 99157; A7048; C1894; C9113; G0378; J0171; J0282; J0360; J0583; J0610; J0690; J0697; J0878; J0885; J1644; J1650; J1756; J1815; J2001; J2250; J2405; J2440; J2543; J2704; J2720; J2765; J3010; J3430; J3475; J3480; J3490; J7030; J7040; J7050; J7060; P9016; P9034; P9045; P9046; Q9967